=== PATIENT | female | born 1975 | race Caucasian/White ===

== ENCOUNTER 2016-12-10 13:57 | Emergency (ER) | payer OTHER | END 2016-12-10 18:00 | disposition home or self-care (01) | DX: F33.2 Major depressive disorder, recurrent severe without psychotic features (principal); R45.851 Suicidal ideations; I10 Essential (primary) hypertension; K21.9 Gastro-esophageal reflux disease without esophagitis; M79.7 Fibromyalgia; M06.9 Rheumatoid arthritis, unspecified ==

== ENCOUNTER 2017-02-24 10:45 | Outpatient (CLI) | payer OTHER ==
[2017-02-24 19:50] LABS: BASOPHILS % (AUTO) 0.7 %; EOSINOPHILS # (AUTO) 0.1 10^3/uL (0.0-0.7); EOSINOPHILS % (AUTO) 1.7 %; HCT - HEMATOCRIT 39.5 % (37.0-47.0); HGB - HEMOGLOBIN 12.8 g/dL (12.0-16.0); LYMPHOCYTES # (AUTO) 1.5 10^3/uL (1.5-3.5); LYMPHOCYTES % (AUTO) 21.6 %; MEAN CORPUSCULAR HEMOGLOBIN 29.4 pg (27.0-31.0); MEAN CORPUSCULAR HGB CONC 32.4 g/dL (32.0-36.0); MEAN CORPUSCULAR VOLUME 90.7 fL (81.0-99.0); MEAN PLATELET VOLUME 8.9 fL (7.9-10.8); MONOCYTES # (AUTO) 0.4 10^3/uL (0.0-1.0); MONOCYTES % (AUTO) 6.2 %; NEUTROPHILS # (AUTO) 4.8 10^3/uL (1.5-6.6); NEUTROPHILS % (AUTO) 69.8 %; NUCLEATED RED BLOOD CELLS AUTO 0.1 /100WBC; RED BLOOD COUNT 4.35 10^6/uL (4.20-5.40); RED CELL DISTRIBUTION WIDTH 13.2 % (12.0-15.0); UNCORRECTED WHITE BLOOD COUNT 6.9 x10^3/uL; WHITE BLOOD COUNT 6.9 x10^3/uL (4.8-10.8)
[2017-02-24 20:13] LABS: IRON 75 ug/dL (28-170); TOTAL IRON BINDING CAPACITY 325 ug/dL (250-450); TRANSFERRIN 232 mg/dL (192-382)
[2017-02-26 12:03] LABS: TEST RESULT REPORT (())
== END 2017-02-24 23:59 | disposition home or self-care (01) ==
LOC: LAB.WCP 10:45
PROVIDERS: ATTEND Physician Assistant Medical
DX: D50.9 Iron deficiency anemia, unspecified (principal); R21 Rash and other nonspecific skin eruption
CPT/HCPCS: 36415; 81599; 82728; 83540; 84466; 85025; 87255

== ENCOUNTER 2017-03-20 11:36 | Outpatient (CLI) | payer OTHER ==
[2017-03-20 18:50] LABS: BASOPHILS # (AUTO) 0.1 10^3/uL (0.0-0.1); BASOPHILS % (AUTO) 0.7 %; EOSINOPHILS % (AUTO) 0.5 %; HCT - HEMATOCRIT 41.5 % (37.0-47.0); HGB - HEMOGLOBIN 13.5 g/dL (12.0-16.0); LYMPHOCYTES # (AUTO) 1.3 10^3/uL (1.5-3.5); LYMPHOCYTES % (AUTO) 14.1 %; MEAN CORPUSCULAR HEMOGLOBIN 29.6 pg (27.0-31.0); MEAN CORPUSCULAR HGB CONC 32.5 g/dL (32.0-36.0); MEAN CORPUSCULAR VOLUME 90.9 fL (81.0-99.0); MEAN PLATELET VOLUME 8.5 fL (7.9-10.8); MONOCYTES # (AUTO) 0.4 10^3/uL (0.0-1.0); MONOCYTES % (AUTO) 4.1 %; NEUTROPHILS # (AUTO) 7.5 10^3/uL (1.5-6.6); NEUTROPHILS % (AUTO) 80.6 %; RED BLOOD COUNT 4.57 10^6/uL (4.20-5.40); RED CELL DISTRIBUTION WIDTH 13.4 % (12.0-15.0); UNCORRECTED WHITE BLOOD COUNT 9.3 x10^3/uL; WHITE BLOOD COUNT 9.3 x10^3/uL (4.8-10.8)
[2017-03-20 18:58] LABS: ALBUMIN/GLOBULIN RATIO 1.9 (1.0-2.2); BILIRUBIN,TOTAL 0.5 mg/dL (0.2-1.0); CALCIUM 9.3 mg/dL (8.5-10.3); CREATININE 0.9 mg/dL (0.4-1.0); POTASSIUM 4.4 mmol/L (3.5-5.0)
== END 2017-03-20 11:37 | disposition home or self-care (01) ==
LOC: LAB.WCP 11:36
PROVIDERS: ATTEND Internal Medicine Rheumatology
DX: M05.79 Rheumatoid arthritis with rheumatoid factor of multiple sites without organ or systems involvement (principal)
CPT/HCPCS: 36415; 80053; 85025

== ENCOUNTER 2017-04-08 12:58 | Outpatient (CLI) | payer OTHER ==
[2017-04-08 15:16] LABS: THYROID STIMULATING HORMONE 0.69 uIU/mL (0.34-5.60)
[2017-04-08 15:24] LABS: FOLLICLE STIMULATING HORMONE 6.34 mIU/mL
[2017-04-08 15:25] LABS: LUTEINIZING HORMONE 5.34 mIU/mL
[2017-04-10 20:47] LABS: TEST RESULT REPORT (())
== END 2017-04-08 12:59 | disposition home or self-care (01) ==
LOC: LAB 12:58
PROVIDERS: ATTEND Physician Assistant Medical
DX: N95.1 Menopausal and female climacteric states (principal); M05.79 Rheumatoid arthritis with rheumatoid factor of multiple sites without organ or systems involvement; Z79.899 Other long term (current) drug therapy
CPT/HCPCS: 81599; 83001; 83002; 84443; 86480

== ENCOUNTER 2017-06-02 11:03 | Outpatient (CLI) | payer OTHER ==
--- NOTE | 2017-06-02 11:49 | XRAY Report ---
EXAM: RIGHT SHOULDER RADIOGRAPHY EXAM DATE: 06/02/2017 11:17 AM. CLINICAL HISTORY: SHOULDER PAIN, RIGHT. COMPARISON: None. TECHNIQUE: 2 views. FINDINGS: Bones: No fracture or bone lesion. Joints: The glenohumeral and acromioclavicular joints are within normal limits. Soft tissues: The visualized hemithorax is unremarkable. No soft tissue swelling or periarticular reese cification. IMPRESSION: Negative right shoulder radiography. [facility] Referring Provider Line: [phone] SITE ID: [id number]
== END 2017-06-02 11:04 | disposition home or self-care (01) ==
LOC: DI 11:03
PROVIDERS: ATTEND Physician Assistant Medical
DX: M25.511 Pain in right shoulder (principal)

== ENCOUNTER 2017-06-19 09:45 | Outpatient (CLI) | payer OTHER ==
[2017-06-19 14:47] LABS: FOLLICLE STIMULATING HORMONE 5.53 mIU/mL
[2017-06-19 14:48] LABS: LUTEINIZING HORMONE 1.88 mIU/mL
== END 2017-06-19 09:46 | disposition home or self-care (01) ==
LOC: LAB.WCP 09:45
PROVIDERS: ATTEND Physician Assistant Medical
DX: N95.1 Menopausal and female climacteric states (principal)
CPT/HCPCS: 36415; 82670; 83001; 83002

== ENCOUNTER 2017-09-08 08:00 | Outpatient (CLI) | payer OTHER | END 2017-09-08 08:01 | disposition home or self-care (01) | LOC: LAB.R 08:00 | PROVIDERS: ATTEND Physician Assistant Medical | DX: N39.0 Urinary tract infection, site not specified (principal) | CPT/HCPCS: 87086 ==

== ENCOUNTER 2017-09-17 15:09 | Outpatient (CLI) | payer OTHER ==
[2017-09-17 19:17] LABS: BASOPHILS % (AUTO) 0.2 %; EOSINOPHILS % (AUTO) 0.1 %; HCT - HEMATOCRIT 38.3 % (37.0-47.0); HGB - HEMOGLOBIN 12.5 g/dL (12.0-16.0); LYMPHOCYTES # (AUTO) 0.8 10^3/uL (1.5-3.5); LYMPHOCYTES % (AUTO) 7.1 %; MEAN CORPUSCULAR HEMOGLOBIN 29.6 pg (27.0-31.0); MEAN CORPUSCULAR HGB CONC 32.5 g/dL (32.0-36.0); MEAN CORPUSCULAR VOLUME 90.9 fL (81.0-99.0); MEAN PLATELET VOLUME 8.5 fL (7.9-10.8); MONOCYTES # (AUTO) 0.3 10^3/uL (0.0-1.0); MONOCYTES % (AUTO) 2.2 %; NEUTROPHILS # (AUTO) 10.7 10^3/uL (1.5-6.6); NEUTROPHILS % (AUTO) 90.4 %; RED BLOOD COUNT 4.21 10^6/uL (4.20-5.40); RED CELL DISTRIBUTION WIDTH 13.6 % (12.0-15.0); UNCORRECTED WHITE BLOOD COUNT 11.9 x10^3/uL; WHITE BLOOD COUNT 11.9 x10^3/uL (4.8-10.8)
[2017-09-17 19:29] LABS: ALBUMIN/GLOBULIN RATIO 1.8 (1.0-2.2); BILIRUBIN,TOTAL 0.4 mg/dL (0.2-1.0); CALCIUM 9.3 mg/dL (8.5-10.3); CREATININE 0.9 mg/dL (0.4-1.0); POTASSIUM 4.3 mmol/L (3.5-5.0)
== END 2017-09-17 15:10 | disposition home or self-care (01) ==
LOC: LAB.WCP 15:09
PROVIDERS: ATTEND Internal Medicine Rheumatology
DX: M05.79 Rheumatoid arthritis with rheumatoid factor of multiple sites without organ or systems involvement (principal); Z79.899 Other long term (current) drug therapy
CPT/HCPCS: 36415; 80053; 85025

== ENCOUNTER 2017-11-26 20:04 | Outpatient (CLI) | payer OTHER ==
--- NOTE | 2017-11-27 11:11 | Ultrasound Report ---
ULTRASOUND POSTERIOR RIGHT NECK: 11/26/2017 CLINICAL INDICATION: Palpable abnormality. TECHNIQUE: Real-time scanning was performed with insurance sales representative static images obtained. FINDINGS: Ultrasound of the palpable abnormality identified by the patient was performed. At this site, there is a 2.0 x 1.8 x 1.4 cm intramuscular lesion, which demonstrates no internal vascularity. It does demonstrate some internal septations. It is not a simple cyst or a simple lipoma. As such, MRI with and without intravenous contrast would be recommended for further characterization. IMPRESSION: SUSPICIOUS APPEARING 2 CM MASS CORRELATING WITH THE PALPABLE ABNORMALITY. MRI WITH AND WITHOUT CONTRAST IS RECOMMENDED FOR FURTHER EVALUATION. TD: 11/27/2017 11:10
== END 2017-11-26 20:05 | disposition home or self-care (01) ==
LOC: DI 20:04
PROVIDERS: ATTEND Physician Assistant Medical
DX: R22.1 Localized swelling, mass and lump, neck (principal)
CPT/HCPCS: 76536

== ENCOUNTER 2017-12-10 11:58 | Outpatient (CLI) | payer OTHER ==
[2017-12-10 18:44] LABS: BASOPHILS % (AUTO) 0.6 %; EOSINOPHILS # (AUTO) 0.2 10^3/uL (0.0-0.7); HGB - HEMOGLOBIN 12.6 g/dL (12.0-16.0); LYMPHOCYTES # (AUTO) 1.7 10^3/uL (1.5-3.5); LYMPHOCYTES % (AUTO) 20.8 %; MEAN CORPUSCULAR HEMOGLOBIN 28.3 pg (27.0-31.0); MEAN CORPUSCULAR HGB CONC 32.4 g/dL (32.0-36.0); MEAN CORPUSCULAR VOLUME 87.3 fL (81.0-99.0); MEAN PLATELET VOLUME 8.6 fL (7.9-10.8); MONOCYTES # (AUTO) 0.7 10^3/uL (0.0-1.0); NEUTROPHILS # (AUTO) 5.6 10^3/uL (1.5-6.6); NEUTROPHILS % (AUTO) 68.6 %; PLT - PLATELET COUNT 342 10^3/uL (130-450); RED BLOOD COUNT 4.45 10^6/uL (4.20-5.40); RED CELL DISTRIBUTION WIDTH 13.3 % (12.0-15.0); WHITE BLOOD COUNT 8.2 x10^3/uL (4.8-10.8)
[2017-12-10 18:58] LABS: ALBUMIN 4.2 g/dL (3.2-5.5); ALBUMIN/GLOBULIN RATIO 1.8 (1.0-2.2); ALKALINE PHOSPHATASE 55 IU/L (42-121); ALT ALANINE AMINOTRANSFERASE 21 IU/L (10-60); AST ASPARTATE AMINOTRANSFERASE 17 IU/L (10-42); BILIRUBIN,TOTAL 0.6 mg/dL (0.2-1.0); BUN - BLOOD UREA NITROGEN 13 mg/dL (6-20); CARBON DIOXIDE - CO2 28 mmol/L (21-32); CHLORIDE 101 mmol/L (101-111); CREATININE 0.8 mg/dL (0.4-1.0); GFR - MDRD 79 (>89); GLUCOSE 83 mg/dL (70-100); SODIUM 136 mmol/L (135-145); TOTAL PROTEIN 6.5 g/dL (6.7-8.2)
[2017-12-10 19:36] LABS: CRP - C-REACTIVE PROTEIN < 1.0 mg/dL (0-1.0)
== END 2017-12-10 11:59 | disposition home or self-care (01) ==
LOC: LAB.WCP 11:58
PROVIDERS: ATTEND Internal Medicine Rheumatology
DX: M05.79 Rheumatoid arthritis with rheumatoid factor of multiple sites without organ or systems involvement (principal); Z79.899 Other long term (current) drug therapy
CPT/HCPCS: 36415; 80053; 85025; 85651; 86140

== ENCOUNTER 2017-12-11 07:48 | Outpatient (CLI) | payer OTHER ==
[2017-12-11] MEDS ORDERED: GADOBUTROL 10 MMOL/10 ML VIAL ONE (07:54)
[2017-12-11] MEDS ORDERED: GADOBUTROL 10 MMOL/10 ML VIAL IVP ONE (08:48)
--- NOTE | 2017-12-11 12:33 | MRI Report ---
EXAM: MRI SOFT TISSUE NECK WITHOUT AND WITH CONTRAST EXAM DATE: 12/11/2017 09:22 AM. CLINICAL HISTORY: Soft tissue mass. Lump on the right side posterior lower neck. Patient noticed this one month ago. COMPARISON: Ultrasound of the neck 11/26/2017. TECHNIQUE: Multiplanar, multisequence T1-weighted and fluid-sensitive MR sequences of the neck soft t issues were performed. Other: None. IV Contrast: 10 mL Gadavist. FINDINGS: Skull Base: Visualized intracranial contents and orbits are unremarkable. The skull base is intact. Pharynx and Oral Cavity: The pharyngeal mucosa is unremarkable. The infratemporal fossa, parapharynge al spaces, and retropharyngeal space are unremarkable. The airway is patent. The base of the tongue is symmetric. No mass lesion. The floor of the mouth is symmetric and unremark able. Larynx: The larynx and supraglottic airway are patent without mass lesion. The vocal cords are symme tric. The visualized trachea is unremarkable. Parotid and Submandibular Glands: Symmetric and unremarkable. Lymph Nodes and Soft Tissues: No enlarged cervical, supraclavicular fossa, or visualized superior me diastinal lymph nodes. Lobular rim-enhancing soft tissue mass is seen in the right posterolateral lower neck deep subcutaneo us fat plane. This is superficial to the trapezius muscle. This measures 19 x 13 x 17 mm. Similar jade earing but smaller mirror image nodule is seen in the left posterolateral neck as well measuring appr oximately 6 mm in size. Vasculature: Intact. The right internal jugular vein is dominant. Bones: Unremarkable. Other: The upper chest is unremarkable. IMPRESSION: 1. Enhancing 19 x 13 x 17 mm mass in the deep subcutaneous fat plane of the right posterolateral lowe r neck. This could represent a mesenchymal tumor or enlarged lymph node. Biopsy or excision may be of value. 2. Similar appearing mirror image 6 mm nodule in the left posterolateral neck deep subcutaneous fat p radhika as well. This may represent a lymph node versus trichilemmal cyst. [facility] Referring Provider Line: [phone] SITE ID: [id number]
== END 2017-12-11 07:49 | disposition home or self-care (01) ==
LOC: DI 07:48
PROVIDERS: ATTEND Family Medicine
DX: R22.1 Localized swelling, mass and lump, neck (principal)
CPT/HCPCS: 70543; A9585

== ENCOUNTER 2018-01-05 09:46 | Day surgery (SDC) | payer OTHER ==
[~2018-01-05 09:46] MED LIST: ceFAZolin 2 GM/50 ML 2 GM/50 ML BAG IV ONE
[2018-01-05 10:07] LABS: HCG UR QUAL NEGATIVE
[2018-01-05] MEDS ORDERED: LACTATED RINGERS 1,000 ML IV ONE ×2 (10:18→13:10)
[2018-01-05] MEDS ORDERED: DEXAMETHASONE 4 MG/ML VIAL IVP ONE (12:50)
[2018-01-05] MEDS ORDERED: NEOSTIGMINE 1 MG/1 ML 10 ML MDV IVP ONE (12:50)
[2018-01-05] MEDS ORDERED: ePHEDrine 50 MG/ML AMP IVP ONE (12:50)
[2018-01-05] MEDS ORDERED: MIDAZOLAM 2 MG/2 ML VIAL IVP ONE (12:50)
[2018-01-05] MEDS ORDERED: ONDANSETRON 4 MG/2 ML VIAL IVP ONE (12:50)
[2018-01-05] MEDS ORDERED: ROCURONIUM 50 MG/5 ML VIAL IVP ONE (12:50)
[2018-01-05] MEDS ORDERED: fentaNYL 250 MCG/5 ML VIAL IVP ONE (12:50)
[2018-01-05] MEDS ORDERED: GLYCOPYRROLATE 1 MG/5 ML VIAL IVP ONE (12:50)
[2018-01-05] MEDS ORDERED: SUCCINYLCHOLINE 200 MG/10 ML VIAL IVP ONE (12:50)
[2018-01-05] MEDS ORDERED: PROPOFOL 200 MG/20 ML VIAL IVP ONE (12:50)
[2018-01-05] MEDS ORDERED: LIDOCAINE-MPF 2% 5 ML VIAL IM ONE (12:50)
[2018-01-05] MEDS ORDERED: BUPIVACAINE 0.5% PF 10 ML VIAL SUBQ ONE (12:53)
[2018-01-05] MEDS: fentaNYL 100 MCG/2 ML VIAL ONE ×2 (14:12→14:17)
--- NOTE | 2018-01-05 14:12 | OPERATIVE REPORT ---
Operative Report - General Procedure Date: 01/05/18 Planned Procedure: Excision of RIGHT upper back - lower neck mass Pre-Op Diagnosis: RIGHT upper back - lower neck mass (intramuscular - trapezius) Procedure Performed: Excision of RIGHT upper back - lower neck mass (attached to trapezius) Post Op Diagnosis: RIGHT upper back - lower neck mass - favor necrotic lymph node - Procedure Note Primary Surgeon: Ricki Doss MD Anesthesia Provider: Tenzin Silva CRNA and Ricki Munson MD Anesthesia Technique: Local (10 mL 1/2% marcaine) IV Fluids (mL): 1,200 Estimated Blood Loss (mL): 2 Complications: None. - Other Other Information/Narrative: OPERATIVE DESCRIPTION/REPORT: After verbal and written informed consent was obtained detailing the risks of infection, bleeding requiring transfusion with its risks, nerve injury, and , and after I met with the patient confirming the surgery and the site of the surgery and after initialing the site of the surgery with a surgical marker , the patient was brought to the operative suite and placed supine on the operating table. Great care was taken to avoid pressure points to prevent pressure necrosis or nerve injury. Monitoring devices were applied along with TEDs and pneumatic compressive stockings (to prevent DVT). The patient received preoperative antibiotics for surgical prophylaxis. Tenzin Silva CRNA and Ricki Mnuson MD sedated and anesthetized the patient for the entire procedure. The patient was prepped and draped in the usual sterile manner. With the patient draped my initials were clearly visible. A "time in" then confirmed that the patient was identified with 3 identifiers (name, date and medical record number), the history and physical was in the chart, the signed consent confirming the procedure was in the chart, the patient was in the correct position, the aforementioned prophylactic measures were in place or given, we had the correct personnel and equipment to complete the procedure and that anesthesia, surgery and nursing were given an opportunity to express any concerns. With the agreement of everyone in the room, we proceeded with the operation. After the patient was appropriately anesthetized and sedated, an incision was made overlying the lesion and dissection was carried down to the subcutaneous tissues using a combination of Metzenbaum scissors, and scalpel. Hemostasis was obtained via application of Bovie. The lesion was very hard and dark consistent with a necrotic enlarged lymph node. It was also adherent to the trapezius muscle. With a combination of Bovie electrocautery, Metzenbaum scissors, and some blunt dissection the lesion was totally excised. Deep to this lesion was a smaller lesion that had a similar appearance and this was also excised and sent for pathologic evaluation. There was some thicked tissue deeper but this was adherent to the lesion that was seen and felt preoperatively but this was likely tissue adherent to the tissue of interest ( that had already been excised). Meticulous hemostasis was noted. The subcutaneous tissues were approximated using interrupted 3-0 Vicryl sutures. The skin incision was closed using a running subcuticular 4-0 Monocryl suture. A dressing was applied. At this point a time out was performed that confirmed that all the counts were correct, the procedure that was performed, the blood loss, the IV fluids administered, and the patients condition. Having tolerated the procedure well, the patient was subsequently taken to recovery room in good and stable condition. The operative findings were discussed with the patient's significant other. Dragon disclaimer: This document was created in part using voice recognition technology. Because of the inherent limitations of the system ([employer]'s Dragon Dictate user manual states that the licensee understands that speech recognition is a statistical process and that recognition errors are inherent in the process), occasional same sounding word substitutions and grammatical errors do occur and persist despite proofreading. Please read this document for context.
[2018-01-05 15:17] VITALS: BP 133/77
[2018-01-05] MEDS ORDERED: HYDROcod/ACETAM 5/325 MG TABLET ONE (15:31)
== END 2018-01-05 09:47 | disposition home or self-care (01) ==
LOC: SDS 09:46
PROVIDERS: ATTEND Surgery
PROC: 0JB70ZZ Excision of Back Subcutaneous Tissue and Fascia, Open Approach (ICD-10-PCS; principal; 2018-01-05 10:45)
DX: C79.89 Secondary malignant neoplasm of other specified sites (principal); M06.9 Rheumatoid arthritis, unspecified; Z85.820 Personal history of malignant melanoma of skin; J45.909 Unspecified asthma, uncomplicated; Z79.82 Long term (current) use of aspirin
CPT/HCPCS: 21936; 81025; A9270; J0330; J0690; J3010; J7120

== ENCOUNTER 2018-01-29 12:16 | Outpatient (CLI) | payer OTHER ==
[2018-01-29] MEDS ORDERED: BUFFERED LIDOCAINE 10 ML SYRINGE IU ONE (13:59)
--- NOTE | 2018-01-29 17:33 | Ultrasound Report ---
ULTRASOUND-GUIDED FINE NEEDLE ASPIRATION LEFT SHOULDER LYMPH NODE: 01/29/2018 CLINICAL INDICATION: A 42-year-old with biopsy of right shoulder demonstrating malignant melanoma, possible contralateral disease. FINDINGS: Following obtaining informed consent, the patient's left shoulder was prepped and draped in the usual sterile fashion. The skin and soft tissues were anesthetized with lidocaine. Under ultrasound guidance, four 22-gauge fine needle aspirations were performed. Needle washings were submitted to Pathology in [facility]. The patient tolerated the procedure well. No immediate complications. IMPRESSION: FINE NEEDLE ASPIRATION OF LEFT POSTERIOR SHOULDER NODULE. AWAIT PATHOLOGY REPORT. TD: 01/29/2018 17:33
== END 2018-01-29 12:17 | disposition home or self-care (01) ==
LOC: DI 12:16
PROVIDERS: ATTEND Nurse Practitioner Adult Health
DX: C79.2 Secondary malignant neoplasm of skin (principal)
CPT/HCPCS: 10022; 76942

== ENCOUNTER 2018-05-04 06:20 | Day surgery (SDC) | payer OTHER ==
[2018-05-04] MEDS ORDERED: LACTATED RINGERS 1,000 ML IV ONE ×3 (06:25→10:54)
[2018-05-04 06:54] LABS: HCG UR QUAL NEGATIVE
[2018-05-04] MEDS ORDERED: ceFAZolin 2 GM/50 ML 2 GM/50 ML BAG IV ONE (07:09)
--- NOTE | 2018-05-04 07:15 | ANESTHESIA ---
Pre-Anesthesia VS, & Labs - Diagnosis Metastatic Melanoma - Procedure Portacath Placement Vital Signs: Temp Pulse Resp BP Pulse Ox 36.0 C L 18 117/70 100 05/04/18 06:36 05/04/18 06:36 05/04/18 06:36 05/04/18 06:36 Height 5 ft 5 in Weight (kg) 102.1 kg Body Mass Index 40.1 - NPO >8 hours - Is Patient ?: No - Lab Results Lab results reviewed: Yes Home Medications and Allergies Home Medications: Ambulatory Orders Medication Instructions Recorded Confirmed Omeprazole 40 mg PO BID 03/23/13 05/03/18 Oxycodone HCl/Acetaminophen 1 - 2 each PO PRN PRN 03/23/13 05/03/18 [Percocet 7.5-500 mg Tablet] Venlafaxine ER [Effexor ER] 225 mg PO DAILY 03/23/13 05/04/18 Amiloride HCl 5 mg PO DAILY 02/20/16 05/04/18 Cholecalciferol (Vitamin D3) 1,000 unit PO DAILY 02/20/16 05/04/18 [Vitamin D3] Hydroxychloroquine [Plaquenil] 400 mg PO DAILY 02/20/16 05/04/18 Multivitamin [Multivitamins] 1 each PO DAILY 02/20/16 05/04/18 lamoTRIgine [Lamictal] 200 mg PO DAILY 02/20/16 05/03/18 raNITIdine [Zantac] 150 mg PO BID 02/20/16 05/03/18 Isomethepten/Caf/Acetaminophen 1 tab PO QID 12/10/16 05/03/18 [Wsorqctfca-Gxoc-Cosekrvievble] buPROPion [Wellbutrin Xl] 300 mg PO DAILY 12/10/16 05/04/18 Epinephrine [Epipen 2-Ant] 0.3 mg IJ PRN PRN 12/30/17 05/04/18 Folic Acid 1 mg PO DAILY 12/30/17 05/04/18 Meloxicam 7.5 mg PO PRN PRN 12/30/17 05/03/18 Ondansetron HCl [Zofran] 4 mg PO PRN PRN 12/30/17 05/03/18 Prazosin HCl 1 mg PO DAILY 12/30/17 05/03/18 clonazePAM [KlonoPIN] 0.5 tab PO BID 01/05/18 05/03/18 ALPRAZolam [Alprazolam] 0.5 mg PO PRN PRN 01/25/18 05/03/18 Cholecalciferol [Vitamin D3] 1 cap PO DAILY 01/25/18 05/04/18 Cyclobenzaprine [Flexeril] 10 mg PO PRN PRN 01/25/18 05/03/18 Lurasidone HCl [Latuda] 1 tab PO DAILY 01/25/18 05/03/18 Magnesium Oxide [Magnesium] 1 cap PO DAILY 01/25/18 05/04/18 Malic Acid 1 cap PO DAILY 01/25/18 05/04/18 Melatonin 10 mg PO DAILY 01/25/18 05/03/18 Tramadol HCl [Ultram] 50 mg PO PRN PRN 01/25/18 05/03/18 diazePAM [Diazepam] 10 mg PO ONCE 01/27/18 05/04/18 Dabrafenib Mesylate [Tafinlar] 150 mg PO BID 02/15/18 05/04/18 Prochlorperazine [Compazine] 1 - 2 tab PO Q6H PRN #30 tablet 03/03/18 05/04/18 Fluticasone [Flonase] 1 sprays NEO DAILY 03/09/18 05/04/18 Prednisone 5 mg PO PRN PRN 05/03/18 05/03/18 Allergies/Adverse Reactions: Allergies Allergy/AdvReac Type Severity Reaction Status Date / Time azithromycin [From Zithromax] Allergy Intermediate Rash Verified 05/04/18 07:00 Penicillins Allergy Intermediate Anxiety Verified 05/04/18 07:00 promethazine HCl * Allergy Intermediate Hallucinati Verified 05/04/18 07:00 [From Phenergan] ons aripiprazole [From Abilify] Allergy Unknown Verified 05/04/18 07:00 PEANUTS Allergy Intermediate SWELLING Uncoded 05/03/18 15:29 Anes History & Medical History - Anesthetic History Anesthesia Complications: reports: No previous complications - Airway/Dental Dental: WNL Mallampati classification: I - Medical History Cardiovascular: reports: Hypertension Pulmonary: reports: Asthma, Pneumonia Gastrointestinal: reports: GERD Urinary: reports: None Musculoskeletal: reports: Fibromyalgia, Rheumatoid arthritis Endocrine/Autoimmune: reports: None Skin: reports: None Smoking Status: Never smoker - Surgical History General: Cholecystectomy Gynecologic: Breast reduction, Other Orthopedic: Rotator cuff repair Dermatologic: Skin cancer surgery Exam General: Alert, Oriented x3 Mental/Cognitive Status: Alert/Oriented X3 Plan Anesthesia Type: General, MAC Consent for Operative Procedure(s) Verified and Reviewed: Yes Code Status: Attempt Resuscitation ASA classification: 3-Severe systemic disease Is this case an emergency?: No
[2018-05-04] MEDS ORDERED: BUPIVACAINE 0.5% PF 30 ML VIAL SUBQ ONE ×2 (07:56)
[2018-05-04] MEDS ORDERED: LIDOCAINE-MPF 2% 5 ML VIAL IM ONE (08:00)
[2018-05-04] MEDS ORDERED: ONDANSETRON 4 MG/2 ML VIAL IVP ONE (08:00)
[2018-05-04] MEDS ORDERED: PROPOFOL 200 MG/20 ML VIAL IVP ONE (08:00)
[2018-05-04] MEDS ORDERED: KETOROLAC 30 MG/ML VIAL IVP ONE (08:00)
[2018-05-04] MEDS ORDERED: MIDAZOLAM 2 MG/2 ML VIAL IVP ONE (08:00)
[2018-05-04] MEDS ORDERED: fentaNYL 100 MCG/2 ML VIAL IVP ONE (08:00)
[2018-05-04] MEDS ORDERED: DEXAMETHASONE 4 MG/ML VIAL IVP ONE (08:00)
--- NOTE | 2018-05-04 11:11 | OPERATIVE REPORT ---
Operative Report - General Planned Procedure: Portacath placement Pre-Op Diagnosis: Metastatic melanoma Procedure Performed: Portacath placement LEFT subclavian attempted LEFT internal jugular used - modifier 22 for increased procedural time and technical difficulty Post Op Diagnosis: Same - Procedure Note Primary Surgeon: Ricki Doss MD Secondary Surgeon: Ricky Marie MD Anesthesia Provider: Tenzin Silva CRNA Anesthesia Technique: General LMA, Local (14 mL 1/2% marcaine), MAC IV Fluids (mL): 2,000 Estimated Blood Loss (mL): 100 Complications: None. - Other Other Information/Narrative: OPERATIVE DESCRIPTION/REPORT: After verbal and written informed consent was obtained detailing the risks of infection, bleeding requiring transfusion with its risks, nerve injury, and , and after I met with the patient confirming the surgery and the site of the surgery, the patient was brought to the operative suite and placed supine on the operating table. Great care was taken to avoid pressure points to prevent pressure necrosis or nerve injury. Monitoring devices were applied along with TEDs and pneumatic compressive stockings (to prevent DVT). The patient received preoperative antibiotics for surgical prophylaxis. Tenzin Silva CRNA sedated and anesthetized the patient for the entire procedure. The patient was prepped and draped in the usual sterile manner. A "time in" then confirmed that the patient was identified with 3 identifiers (name, date and medical record number), the history and physical was in the chart, the signed consent confirming the procedure was in the chart, the patient was in the correct position, the aforementioned prophylactic measures were in place or given, we had the correct personnel and equipment to complete the procedure and that anesthesia, surgery and nursing were given an opportunity to express any concerns. With the agreement of everyone in the room, we proceeded with the operation. After the subclavian region was anesthetized using % marcaine and the patient placed in Trendelenberg position, an [employer] Smartport kit was opened. The finder needle was inserted numerous times into the LEFT subclavian region underneath the patient's large clavicle without success in finding the subclavian vein. The one time that the vein was accessed it was very deep and the wire could not be advanced past the sternal notch (it kept going "up" rather than "down"). The patient's anatomy was not favorable to finding the vein so I asked for an ultrasound machine to brought in and called Dr. Ricky Marie for assistance with operating the ultrasound and for his opinion regarding continued attempts at subclavian cannulation. With the ultrasound it was clear that both the LEFT IJ and the LEFT subclavian veins were very deep ( over 4 cm from the skin). Due to "interference" from the clavicle, it was felt that the LEFT IJ would be a better though still difficult candidate. Both veins were very small in size. Using ultrasound the needle was placed into the left internal jugular vein and wire placed. Fluoroscopy was called to confirm placement of the wire into the right atrium. There was a little bump where the brachiocephalic came in but a wire was definitively in the right atrium. This wire was left in place while the pouch for the Port-A-Cath was created. Below and medial to the patient's tattoo, the area was anesthetized using % marcaine and a transverse incision was made just large enough to accommodate the port. This incision was taken down to the fascia using sharp dissection and the area for the port was created using blunt downward dissection. Meticulous hemostasis was obtained using Bovie electrocautery. A Leta clamp was used on the anterior chest wall to measure the catheter to make sure that there would be enough length that it would be placed in the right atrium. The catheter was then cut at 27 cm. An 11 blade knife was inserted along the wire to widen the insertion site and this was further dilated using a Leta. The passer was then used to pass the catheter from the pouch site to be needle/wire insertion site. The catheter secured to the port with the collar was sewn to the fascia using a 3-0 Prolene. The port and the catheter were flushed with heparinized saline using a Gross needle. The dilator and then the dilator and sheath were then carefully inserted over the wire and the dilator and wire withdrawn. The catheter was then inserted into the sheath and the sheath was broken away from the catheter leaving the catheter in place in the vein. An X-ray confirmed placement of the catheter tip in the supracardiac vena cava without pneumothorax but it was curved upward . This was unacceptable. Under fluoroscopic guidance and after I removed the port from the pouch and disconnected the port from the catheter, I tried guiding the catheter down toward the heart both with and without a guide wire in the catheter. Despite numerous attempts it became clear that this was a fruitless endeavor. It was clear that I would have to replace the catheter using a longer wire and initial catheter. After obtaining a glidewire and ensuring that it would pass through the catheter , the wire was placed into the malpositioned catheter gaining access to the vena cava and the old catheter removed. Under fluoroscopic guidance the wire was placed into the right ventricle. Numerous attempts could not place it in the infracardiac vena cava. The wire was then passed from the port site to the needle insertion site and a dilator and sheath placed over the wire and into the internal jugular vein. Again the dilator was removed and the catheter was passed from the port site to the needle insertion site and placed over the wire and into the right ventricle under fluoroscopic guidance. Now the wire was removed and the peel away sheath removed leaving the catheter in the right ventricle. Now I was able to gently pull the catheter back until it sat in the right atrium. Now with fluoroscopic confirmation of placement the catheter was cut, the collar applied and the port connected to the catheter and secured with the collar. Using a Hueber needle the port was accessed and good blood return as well as easy flush was noted. The subcutaneous tissue was approximated using 3-0 Vicryl and the skin incisions were approximated with 4-0 Monocryl in a subcuticular fashion. The skin prep was washed off and prepped with benzoin. Steristrips were applied. At this point a time out was performed that confirmed that all the counts were correct, the procedure that was performed, the blood loss, the IV fluids administered, and the patients condition. A dressing was placed on the wound. Having tolerated the procedure well, the patient was taken to PACU in good and stable condition where a chest x-ray confirmed excellent placement without pneumothorax. The patient was instructed that the Portacath could be used immediately. This normally 20 minute procedure took close to 3 hours to complete and used fluoroscopy,ultrasound as well as 2 kits and a glidewire. I called in the expertise of another surgeon. Hence a modifier 22 must be appended.
[2018-05-04] MEDS ORDERED: ONDANSETRON 4 MG/2 ML VIAL ONE (11:35)
[2018-05-04] MEDS: oxyCOD/ACETAMIN 5 MG/325 MG TABLET PO ONE ×2 (11:40→12:08)
--- NOTE | 2018-05-04 12:18 | XRAY Report ---
Procedure Date: 05/04/2018 Accession Number: [id number] / [id number] Procedure: XR - Chest 1 View X-Ray CPT Code: 62475 FULL RESULT: EXAM: Chest 1 View X-Ray DATE: 05/04/2018 11:57 AM CLINICAL HISTORY: S/P port a cath COMPARISON: Intraoperative fluoroscopy same day. TECHNIQUE: Single view of the chest. FINDINGS: Lungs/Pleura: No focal opacities evident. No pneumothorax or pleural effusion. Mediastinum: Within exam limitations, cardiomediastinal contour is normal. Other: A left internal jugular vein approach Port-A-Cath with the tip terminating in the lower SVC just above the cavoatrial junction. Correlate acute curvature at the venotomy site for free port aspiration and flushing. IMPRESSION: Central venous port placement with tip location as described. [facility]
[2018-05-04] MEDS ORDERED: oxyCOD/ACETAMIN 5 MG/325 MG TABLET PO ONE (12:45)
[2018-05-04 13:29] VITALS: BP 133/80
--- NOTE | 2018-05-04 16:00 | XRAY Report ---
Procedure Date: 05/04/2018 Accession Number: [id number] / [id number] Procedure: FL - OR Port-A-Cath CPT Code: FULL RESULT: EXAM: OR Port-A-Cath DATE: 05/04/2018 12:10 PM CLINICAL HISTORY: LINE PLACEMENT COMPARISON: None. Findings: Fluoroscopic images captured during operative placement of a left central venous port-type catheter are submitted for review. The radiologist was not continuously present during the procedure. Normal anatomy is identified on the images. For final positioning of the central venous catheter, refer to the radiograph of the thorax obtained following the procedure. Fluoroscopy time: 3 minutes 45 seconds. 7 images captured. IMPRESSION: Left central venous Port-A-Cath placement. [facility]
== END 2018-05-04 06:21 | disposition home or self-care (01) ==
LOC: SDS 06:20
PROVIDERS: ATTEND Surgery
PROC: 05HN33Z Insertion of Infusion Device into Left Internal Jugular Vein, Percutaneous Approach (ICD-10-PCS; 2018-05-04)
PROC: B514ZZA Fluoroscopy of Left Jugular Veins, Guidance (ICD-10-PCS; 2018-05-04)
PROC: 0JH63WZ Insertion of Totally Implantable Vascular Access Device into Chest Subcutaneous Tissue and Fascia, Percutaneous Approach (ICD-10-PCS; principal; 2018-05-04 07:59)
DX: C43.9 Malignant melanoma of skin, unspecified (principal); I10 Essential (primary) hypertension; J45.909 Unspecified asthma, uncomplicated
CPT/HCPCS: 71045; 81025

== ENCOUNTER 2018-09-27 12:09 | Outpatient (CLI) | payer OTHER ==
--- NOTE | 2018-09-27 12:35 | XRAY Report ---
Reason: METASTATIC MELANOMA Procedure Date: 09/27/2018 Accession Number: [id number] / [id number] Procedure: XR - Chest 2 View X-Ray CPT Code: 26618 FULL RESULT: EXAM: CHEST RADIOGRAPHY EXAM DATE: 09/27/2018 12:19 PM. CLINICAL HISTORY: Metastatic melanoma. COMPARISON: CHEST 1 VIEW 05/04/2018 11:33 AM. TECHNIQUE: 2 views. FINDINGS: Lungs/Pleura: No focal opacities evident. No pleural effusion. No pneumothorax. Normal volumes. Mediastinum: Heart and mediastinal contours are unremarkable. Other: Right IJ port with tip at the superior cavoatrial junction similar to prior. IMPRESSION: No evidence of pneumonia. [facility]
--- NOTE | 2018-09-27 12:39 | ONCOLOGY / HEMATOLOGY ---
DATE OF SERVICE: 09/27/2018 Physician: Mor Raza MD, PHD To Whom it May Concern: This letter is to attest MsGlenys Knight is a patient of our cancer center and currently receiving active therapy for an advanced melanoma. She has had several types of therapies which cause much distress due to side effects and cancer progression. Most recently, she is receiving dabrafenib and ipilimumab. although the melanoma is better under control, she has much difficulties with fever, fatigue, flare of joint pains and flare of migraine headache. she has lost much weight due to nausea, loss of appetite. The disease, treatments and side effects are causing much distress to her life. Any other additional stress either from social, economical or legal aspects will certainly worsen her condition and impair her recovery from treatment side effects, and her illness. Should you need further information, please do not hesitate to contact me at [phone]. Sincerely yours, Mor Raza MD. TD: 09/27/2018 10:08 MTDD
== END 2018-09-27 12:10 | disposition home or self-care (01) ==
LOC: DI 12:09
PROVIDERS: ATTEND Internal Medicine Hematology & Oncology
DX: C43.9 Malignant melanoma of skin, unspecified (principal); C79.9 Secondary malignant neoplasm of unspecified site; E86.0 Dehydration; E87.1 Hypo-osmolality and hyponatremia; R19.7 Diarrhea, unspecified
CPT/HCPCS: 71046

== ENCOUNTER 2018-11-11 05:51 | Inpatient (IN) | payer OTHER ==
--- NOTE | 2018-11-11 06:03 | ED Physician Documentation ---
PD HPI FEVER - Stated complaint Stated Complaint: FEVER - Chief complaint Chief Complaint: Fever - History obtained from History obtained from: Patient - History of Present Illness Timing - onset: How many days ago (12) Timing details: Abrupt onset, Intermittant Pain level now: 5 (generalized myalgias) Associated symptoms: Chills, Sweats. No: Nasal congestion, Sinus pain, Sore throat, Dry cough, Productive cough, Dyspnea, Abdominal pain, Urinary symptoms, Rash/skin lesion Contributing factors: Immunocompromised (chemotherapy/immunotherapy) Recently seen: Not recently seen - Additional information Additional information: c/o 12 days of fever which had been controlled with tylenol, although she says fever would consistently return if she did not take tylenol Q8 hours. She says that her hem/onc doctor told her that as long as the fever was controlled with tylenol (able to drop below 100.4 with tylenol), she did not need to be emergently evaluated. This morning at 3 AM , her fever was over 102 and then increased to over 103 after tylenol and thus she came to ED. She c/o generalized myalgias and fatigue. Her chemotherapy is a daily oral agent she takes at home, and her immunotherapy is Q3 weeks with next dose in 2 weeks. Patient last took tylenol shortly after 3 AM this morning. Review of Systems Constitutional: reports: Fever, Chills, Myalgias, Fatigue, Sweats Eyes: reports: Reviewed and negative Ears: reports: Reviewed and negative Nose: reports: Reviewed and negative Throat: denies: Sore throat Cardiac: reports: Reviewed and negative Respiratory: reports: Reviewed and negative GI: reports: Nausea. denies: Abdominal Pain, Vomiting, Diarrhea : denies: Dysuria, Frequency Skin: denies: Rash Musculoskeletal: reports: Reviewed and negative Neurologic: reports: Generalized weakness. 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, Other Derm: Skin cancer surgery - Present Medications Home Medications: Ambulatory Orders Medication Instructions Recorded Confirmed Omeprazole 40 mg PO BID 03/23/13 11/11/18 Venlafaxine ER [Effexor ER] 225 mg PO DAILY 03/23/13 11/11/18 Amiloride HCl 5 mg PO DAILY 02/20/16 11/11/18 Hydroxychloroquine [Plaquenil] 400 mg PO DAILY 02/20/16 11/11/18 Multivitamin [Multivitamins] 1 each PO DAILY 02/20/16 11/11/18 raNITIdine [Zantac] 150 mg PO BID 02/20/16 11/11/18 EPINEPHrine [Epipen 2-Ant] 0.3 mg IJ PRN PRN 12/30/17 11/11/18 Folic Acid 1 mg PO DAILY 12/30/17 11/11/18 Meloxicam 7.5 mg PO 1400 12/30/17 11/11/18 Prazosin HCl 1 mg PO QPM 12/30/17 11/11/18 clonazePAM [KlonoPIN] 0.5 tab PO BID PRN 01/05/18 11/11/18 Cyclobenzaprine [Flexeril] 10 mg PO TID PRN 01/25/18 11/11/18 Lurasidone HCl [Latuda] 60 mg PO QPM 01/25/18 11/11/18 Magnesium Oxide [Magnesium] 800 mg PO DAILY 01/25/18 11/11/18 Malic Acid 1 cap PO DAILY 01/25/18 11/11/18 Melatonin 10 mg PO DAILY 01/25/18 11/11/18 Prednisone 5 - 20 mg PO DAILY PRN 05/03/18 11/11/18 Lidocaine/Prilocain 2.5% Cream 30 gm TOP 1-2XD PRN #1 tube 05/04/18 11/11/18 [Emla 2.5% Cream] Ondansetron HCl [Zofran] 4 mg PO Q4H PRN #30 tablet 07/26/18 11/11/18 Bupropion HCl [Bupropion Xl] 300 mg PO DAILY 11/11/18 11/11/18 Dabrafenib Mesylate [Tafinlar] 150 mg PO BID 11/11/18 11/11/18 Isometheptene Mucate 65 mg PO QID 11/11/18 11/11/18 Lamotrigine [Lamotrigine ER] 200 mg PO QPM 11/11/18 11/11/18 Oxycodone HCl/Acetaminophen 1 tab PO Q6H PRN 11/11/18 11/11/18 [Oxycodone-Acetaminophen 10-325] Zolpidem Tartrate [Ambien] 10 mg PO QPM PRN 11/11/18 11/11/18 - Allergies Allergies/Adverse Reactions: Allergies Allergy/AdvReac Type Severity Reaction Status Date / Time peanut Allergy Severe Anaphylaxis Verified 11/11/18 08:44 azithromycin [From Zithromax] Allergy Intermediate Rash Verified 11/11/18 06:33 Penicillins Allergy Intermediate Anxiety Verified 11/11/18 06:33 promethazine HCl * Allergy Intermediate Hallucinati Verified 11/11/18 06:33 [From Phenergan] ons aripiprazole [From Abilify] Allergy Unknown Verified 11/11/18 06:33 dabrafenib Allergy Rash Verified 11/11/18 06:33 - Social History Does the pt smoke?: No Smoking Status: Never smoker Does the pt drink ETOH?: No Does the pt have substance abuse?: Yes PD ED PE NORMAL - Vitals Vital signs reviewed: Yes - General General: Alert and oriented X 3, Well developed/nourished, Other (appears uncomfortable, listless) - HEENT HEENT: Moist mucous membranes, Pharynx benign - Neck Neck: Supple, no meningeal sign - Cardiac Cardiac: No murmur - Respiratory Respiratory: No respiratory distress, Clear bilaterally - Abdomen Abdomen: Soft, Non tender, Non distended - Back Back: No CVA TTP - Derm Derm: Normal color, Warm and dry, No rash - Extremities Extremities: No edema - Neuro Neuro: Alert and oriented X 3 Eye Opening: Spontaneous Motor: Obeys Commands Verbal: Oriented GCS Score: 15 PD ED PE EXPANDED - Cardiac Cardiac: Tachy, Regular Rhythm Results - Vitals Vitals: Vital Signs - 24 hr 11/11/18 11/11/18 11/11/18 05:55 06:46 07:10 Temperature 38.0 C H Heart Rate 145 H 125 H 119 H Respiratory 20 18 20 Rate Blood Pressure 123/60 93/64 76/49 L O2 Saturation 97 100 100 11/11/18 11/11/18 11/11/18 07:17 07:34 07:45 Temperature Heart Rate 120 H 116 H 110 H Respiratory 20 20 20 Rate Blood Pressure 86/50 L 74/38 L 80/48 L O2 Saturation 100 99 99 11/11/18 08:00 Temperature Heart Rate 107 H Respiratory 20 Rate Blood Pressure 93/45 L O2 Saturation 97 Oxygen O2 Source Room air - Labs Labs: Laboratory Tests 11/11/18 11/11/18 11/11/18 06:15 06:15 06:15 WBC 10.7 RBC 4.39 Hgb 12.0 Hct 36.0 L MCV 82.0 MCH 27.3 MCHC 33.2 RDW 14.9 Plt Count 221 MPV 7.7 L Neut # (Auto) 9.2 H Lymph # (Auto) 0.[address] [place] # (Auto) 0.8 Eos # (Auto) 0.2 Baso # (Auto) 0.0 Absolute Nucleated RBC 0.02 Nucleated RBC % 0.2 Sodium 131 L Potassium 3.4 L Chloride 97 L Carbon Dioxide 22 Anion Gap 12.0 BUN 12 Creatinine 1.1 H Estimated GFR (MDRD) 54 L Glucose 103 H Lactic Acid 2.8 H Calcium 9.1 Total Bilirubin 0.4 AST 53 H ALT 26 Alkaline Phosphatase 238 H Lactate Dehydrogenase Total Protein 6.5 L Albumin 3.3 Globulin 3.2 Albumin/Globulin Ratio 1.0 Lipase 27 TSH Free T4 HCG, Quant Cortisol AM Sample Urine Color Urine Clarity Urine pH Ur Specific [place] Urine Protein Urine Glucose (UA) Urine Ketones Urine Occult Blood Urine Nitrite Urine Bilirubin Urine Urobilinogen Ur Leukocyte Esterase Ur Microscopic Review Urine Culture Comments Urine HCG, Qual Urine Opiates Screen Ur Oxycodone Screen Urine Methadone Screen Ur Propoxyphene Screen Ur Barbiturates Screen Ur Tricyclics Screen Ur Phencyclidine Scrn Ur Amphetamine Screen U Methamphetamines Scrn U Benzodiazepines Scrn Urine Cocaine Screen U Cannabinoids Screen Influenza A (Rapid) Influenza B (Rapid) 11/11/18 11/11/18 11/11/18 06:15 06:15 06:15 WBC RBC Hgb Hct MCV MCH MCHC RDW Plt Count MPV Neut # (Auto) Lymph # (Auto) [place] # (Auto) Eos # (Auto) Baso # (Auto) Absolute Nucleated RBC Nucleated RBC % Sodium Potassium Chloride Carbon Dioxide Anion Gap BUN Creatinine Estimated GFR (MDRD) Glucose Lactic Acid Calcium Total Bilirubin AST ALT Alkaline Phosphatase Lactate Dehydrogenase 235 H Total Protein Albumin Globulin Albumin/Globulin Ratio Lipase TSH 0.38 Free T4 0.63 HCG, Quant 0.74 Cortisol AM Sample Urine Color Urine Clarity Urine pH Ur Specific [place] Urine Protein Urine Glucose (UA) Urine Ketones Urine Occult Blood Urine Nitrite Urine Bilirubin Urine Urobilinogen Ur Leukocyte Esterase Ur Microscopic Review Urine Culture Comments Urine HCG, Qual Urine Opiates Screen Ur Oxycodone Screen Urine Methadone Screen Ur Propoxyphene Screen Ur Barbiturates Screen Ur Tricyclics Screen Ur Phencyclidine Scrn Ur Amphetamine Screen U Methamphetamines Scrn U Benzodiazepines Scrn Urine Cocaine Screen U Cannabinoids Screen Influenza A (Rapid) Influenza B (Rapid) 11/11/18 11/11/18 11/11/18 06:15 06:37 06:55 WBC RBC Hgb Hct MCV MCH MCHC RDW Plt Count MPV Neut # (Auto) Lymph # (Auto) [place] # (Auto) Eos # (Auto) Baso # (Auto) Absolute Nucleated RBC Nucleated RBC % Sodium Potassium Chloride Carbon Dioxide Anion Gap BUN Creatinine Estimated GFR (MDRD) Glucose Lactic Acid Calcium Total Bilirubin AST ALT Alkaline Phosphatase Lactate Dehydrogenase Total Protein Albumin Globulin Albumin/Globulin Ratio Lipase TSH Free T4 HCG, Quant Cortisol AM Sample 22.6 Urine Color DARK YELLOW Urine Clarity CLEAR Urine pH 5.0 Ur Specific [place] >=1.030 H Urine Protein TRACE Urine Glucose (UA) NEGATIVE Urine Ketones TRACE Urine Occult Blood NEGATIVE Urine Nitrite NEGATIVE Urine Bilirubin NEGATIVE Urine Urobilinogen 0.2 (NORMAL) Ur Leukocyte Esterase NEGATIVE Ur Microscopic Review NOT INDICATED Urine Culture Comments NOT INDICATED Urine HCG, Qual Urine Opiates Screen Ur Oxycodone Screen Urine Methadone Screen Ur Propoxyphene Screen Ur Barbiturates Screen Ur Tricyclics Screen Ur Phencyclidine Scrn Ur Amphetamine Screen U Methamphetamines Scrn U Benzodiazepines Scrn Urine Cocaine Screen U Cannabinoids Screen Influenza A (Rapid) Negative Influenza B (Rapid) Negative 11/11/18 11/11/18 06:55 06:55 WBC RBC Hgb Hct MCV MCH MCHC RDW Plt Count MPV Neut # (Auto) Lymph # (Auto) [place] # (Auto) Eos # (Auto) Baso # (Auto) Absolute Nucleated RBC Nucleated RBC % Sodium Potassium Chloride Carbon Dioxide Anion Gap BUN Creatinine Estimated GFR (MDRD) Glucose Lactic Acid Calcium Total Bilirubin AST ALT Alkaline Phosphatase Lactate Dehydrogenase Total Protein Albumin Globulin Albumin/Globulin Ratio Lipase TSH Free T4 HCG, Quant Cortisol AM Sample Urine Color Urine Clarity Urine pH Ur Specific [place] >=1.030 H Urine Protein Urine Glucose (UA) Urine Ketones Urine Occult Blood Urine Nitrite Urine Bilirubin Urine Urobilinogen Ur Leukocyte Esterase Ur Microscopic Review Urine Culture Comments Urine HCG, Qual NEGATIVE Urine Opiates Screen POSITIVE H Ur Oxycodone Screen NEGATIVE Urine Methadone Screen NEGATIVE Ur Propoxyphene Screen NEGATIVE Ur Barbiturates Screen POSITIVE H Ur Tricyclics Screen POSITIVE H Ur Phencyclidine Scrn POSITIVE H Ur Amphetamine Screen NEGATIVE U Methamphetamines Scrn POSITIVE H U Benzodiazepines Scrn POSITIVE H Urine Cocaine Screen NEGATIVE U Cannabinoids Screen NEGATIVE Influenza A (Rapid) Influenza B (Rapid) PD MEDICAL DECISION MAKING - ED course Complexity details: reviewed old records, reviewed results, re-evaluated patient, considered differential, d/w patient ED course: Patient's tachycardia improved with fluids (from 140s down to upper 110s after 1 liter IV NS, given via port), as did her general appearance. She appeared more comfortable and no longer listless after 1 liter NS. unfortunately, her blood pressure decreased during IV fluids from 120s SBP to 90s, then 80s and after completion of 1 liter, she was 70s SBP (despite appearing well). A second liter of NS was started and decision made to admit for further testing/treatment. D/W Dr. Iniguez, accepts to hospitalist service. Departure - Departure Disposition: 66 [facility] DC/Xfer Clinical Impression: Fever Qualifiers: Fever type: unspecified Qualified Code(s): R50.9 - Fever, unspecified Hypotension Qualifiers: Hypotension type: unspecified hypotension type Qualified Code(s): I95.9 - Hypotension, unspecified Condition: Stable Discharge Date/Time: 11/11/18 08:22
[2018-11-11] MEDS ORDERED: SODIUM CHLORIDE 0.9% 1,000 ML IV STA (06:18)
[2018-11-11 06:27] LABS: BASOPHILS % (AUTO) 0.5 %; EOSINOPHILS # (AUTO) 0.2 10^3/uL (0.0-0.7); EOSINOPHILS % (AUTO) 1.6 %; LYMPHOCYTES # (AUTO) 0.4 10^3/uL (1.5-3.5); LYMPHOCYTES % (AUTO) 4.2 %; MEAN CORPUSCULAR HEMOGLOBIN 27.3 pg (27.0-31.0); MEAN CORPUSCULAR HGB CONC 33.2 g/dL (32.0-36.0); MEAN PLATELET VOLUME 7.7 fL (7.9-10.8); MONOCYTES # (AUTO) 0.8 10^3/uL (0.0-1.0); MONOCYTES % (AUTO) 7.4 %; NEUTROPHILS # (AUTO) 9.2 10^3/uL (1.5-6.6); NEUTROPHILS % (AUTO) 86.3 %; PLT - PLATELET COUNT 221 10^3/uL (130-450); RED BLOOD COUNT 4.39 10^6/uL (4.20-5.40); RED CELL DISTRIBUTION WIDTH 14.9 % (12.0-15.0); WHITE BLOOD COUNT 10.7 x10^3/uL (4.8-10.8)
[2018-11-11] MEDS ORDERED: IBUPROFEN 400 MG TABLET PO STA (06:34)
[2018-11-11 06:43] LABS: ALBUMIN 3.3 g/dL (3.2-5.5); BILIRUBIN,TOTAL 0.4 mg/dL (0.2-1.0); CALCIUM 9.1 mg/dL (8.5-10.3); CREATININE 1.1 mg/dL (0.4-1.0); TOTAL PROTEIN 6.5 g/dL (6.7-8.2)
[2018-11-11 06:59] LABS: GLUCOSE, URINE (UA) NEGATIVE (NEGATIVE); KETONES,URINE (UA) TRACE mg/dL (NEGATIVE); LEUKOCYTE ESTERASE, URINE NEGATIVE (NEGATIVE); NITRITE,URINE NEGATIVE (NEGATIVE); OCCULT BLOOD,URINE NEGATIVE (NEGATIVE); PROTEIN,URINE TRACE mg/dL (NEGATIVE); UROBILINOGEN,URINE 0.2 (NORMAL) E.U./dL (NORMAL)
[2018-11-11 07:08] LABS: BILIRUBIN,URINE NEGATIVE (NEGATIVE); CLARITY,URINE CLEAR (CLEAR); ICTOTEST,URINE NEGATIVE
[2018-11-11] MEDS ORDERED: SODIUM CHLORIDE 0.9% 500 ML IV ONE (07:30)
[2018-11-11] MEDS ORDERED: IPRATROPIUM 0.2 MG/ML NEB INH PRN (08:02)
[2018-11-11] MEDS ORDERED: ONDANSETRON ODT 4 MG TABLET TL PRN (08:02)
[2018-11-11] MEDS ORDERED: SODIUM CHLORIDE FLUSH 0.9% 10 ML SYRINGE IVP PRN (08:02)
[2018-11-11] MEDS ORDERED: ALBUTEROL NEB 2.5 MG/3 ML INH PRN (08:02)
[2018-11-11] MEDS ORDERED: EPINEPHrine 1 MG/ML AMP IM PRN (08:07)
[2018-11-11] MEDS ORDERED: LIDOCAINE TOP PRN (08:07)
[2018-11-11] MEDS ORDERED: [UNRECOGNIZED DRUG - OTHER] TOP PRN (08:07)
[2018-11-11 08:51] LABS: THYROID STIMULATING HORMONE 0.38 uIU/mL (0.34-5.60)
[2018-11-11 08:53] LABS: FREE T4 (FREE THYROXINE) 0.63 ng/dL (0.58-1.64)
[2018-11-11 09:04] LABS: MUDS CUTOFF CONCENTRATIONS CUTOFF CONC BELOW:
[2018-11-11 09:10] LABS: HCG UR QUAL NEGATIVE
[2018-11-11] MEDS: LACTATED RINGERS 1,000 ML IV SCH ×5 (09:14→23:46)
[2018-11-11] MEDS: FAMOTIDINE 20 MG/50 ML 50 ML IV SCH ×2 (09:20→21:06)
[2018-11-11 09:21] LABS: AMPHETAMINE SCREEN,URINE NEGATIVE (NEGATIVE); BENZODIAZEPINES SCREEN, URINE POSITIVE (NEGATIVE); COCAINE SCREEN URINE NEGATIVE (NEGATIVE); METHADONE SCREEN, URINE NEGATIVE (NEGATIVE); METHAMPHETAMINES SCREEN, URINE POSITIVE (NEGATIVE); OPIATE SCREEN, URINE POSITIVE (NEGATIVE); TRICYCLIC ANTIDEPRESSANT,URINE POSITIVE (NEGATIVE)
[2018-11-11 09:22] LABS: OXYCODONE SCREEN, URINE NEGATIVE (NEGATIVE); PROPOXYPHENE SCREEN, URINE NEGATIVE (NEGATIVE)
--- NOTE | 2018-11-11 10:42 | HISTORY & PHYSICAL EXAMINATION ---
Chief Complaint - Chief Complaint Chief Complaint: Fatigue with fevers and chills History of Present Illness - Admitted From Admitted From:: Home - History Obtained From Records Reviewed: Yes History obtained from: Patient and Exam Limitations: None - History of Present Illness HPI Comment/Other: 43 y/o female with hx of metastatic melanoma who receives daily Tafinlar and immunotx q3 weeks, has a viable left port-a-cath saw Dr. Raza previously and currently sees oncology at [facility] for which she is scheduled for an MRI next week. Patient p/w 12 days of fever which had been controlled with tylenol, although she says fever would consistently return if she did not take tylenol Q8 hours. She says that her hem/onc doctor told her that as long as the fever was controlled with tylenol (able to drop below 100.4 with tylenol), she did not need to be emergently evaluated. This morning at 3 AM , her fever was over 102 and then increased to over 103 after tylenol and thus she came to ED. She c/o generalized myalgias and fatigue. Patient's last dose of immunotx was 11/03/18, denies rashes, diarrhea, GI/ symptoms, chest pain, sick contacts or recent travel. On initial exam patient was tachycardic was given 1 liter iVF and had subsequent hypotension with sBP 70's, non-hypoxemic, non-tachypneic, and Tmax 38 in ED. Patient's workup showed a lactic acid 2.8, WBC 10.7 (prev 4 on 10/23), LFT's slightly elevated with a clean UA, Na 131, cr 1.1, Flu neg. Patient does have hx suicidal ideation and has bipolar d/o, chronic atypical migraine COFFMAN's, IBS, GERD. Patient was admitted for possible underlying sepsis however no identifiable causes, SIRS by criteria to be admitted to ICU for possible pressor support via port and will hold off on empiric IV abx's. Patient was originally diagnosed in 2001 with cutaneous melanoma of the right shoulder, s/p excision w/ local and metastatic recurrence in 2018. She is currently on ipilimumab (Yervoy) and had to restart dabrafenib (Taflinar) for rapid regrowth of tumor. Dr Rosario from [place] [place] recommended to continue Taflinar while we proceed with with cycle 3, and 4 of Yervoy, she has not had significant toxicity per Dr Rosario and would continue with this regimen. Dr Rosario did discuss with patient in the future if she does not respond to Taflinar they would consider enrollment on the advanced melanoma TIL study, which is expected to open in January 2019. 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, Other Derm: reports: Skin cancer surgery - POLST Patient has POLST: No Meds/Allgy - Home Medications Home Medications: Ambulatory Orders Medication Instructions Recorded Confirmed Omeprazole 40 mg PO BID 03/23/13 11/11/18 Venlafaxine ER [Effexor ER] 225 mg PO DAILY 03/23/13 11/11/18 Amiloride HCl 5 mg PO DAILY 02/20/16 11/11/18 Hydroxychloroquine [Plaquenil] 400 mg PO DAILY 02/20/16 11/11/18 Multivitamin [Multivitamins] 1 each PO DAILY 02/20/16 11/11/18 raNITIdine [Zantac] 150 mg PO BID 02/20/16 11/11/18 EPINEPHrine [Epipen 2-Nat] 0.3 mg IJ PRN PRN 12/30/17 11/11/18 Folic Acid 1 mg PO DAILY 12/30/17 11/11/18 Meloxicam 7.5 mg PO 1400 12/30/17 11/11/18 Prazosin HCl 1 mg PO QPM 12/30/17 11/11/18 clonazePAM [KlonoPIN] 0.5 tab PO BID PRN 01/05/18 11/11/18 Cyclobenzaprine [Flexeril] 10 mg PO TID PRN 01/25/18 11/11/18 Lurasidone HCl [Latuda] 60 mg PO QPM 01/25/18 11/11/18 Magnesium Oxide [Magnesium] 800 mg PO DAILY 01/25/18 11/11/18 Malic Acid 1 cap PO DAILY 01/25/18 11/11/18 Melatonin 10 mg PO DAILY 01/25/18 11/11/18 Prednisone 5 - 20 mg PO DAILY PRN 05/03/18 11/11/18 Lidocaine/Prilocain 2.5% Cream 30 gm TOP 1-2XD PRN #1 tube 05/04/18 11/11/18 [Emla 2.5% Cream] Ondansetron HCl [Zofran] 4 mg PO Q4H PRN #30 tablet 07/26/18 11/11/18 Bupropion HCl [Bupropion Xl] 300 mg PO DAILY 11/11/18 11/11/18 Dabrafenib Mesylate [Tafinlar] 150 mg PO BID 11/11/18 11/11/18 Isometheptene Mucate 65 mg PO QID 11/11/18 11/11/18 Lamotrigine [Lamotrigine ER] 200 mg PO QPM 11/11/18 11/11/18 Oxycodone HCl/Acetaminophen 1 tab PO Q6H PRN 11/11/18 11/11/18 [Oxycodone-Acetaminophen 10-325] Zolpidem Tartrate [Ambien] 10 mg PO QPM PRN 11/11/18 11/11/18 - Allergies Allergies/Adverse Reactions: Allergies Allergy/AdvReac Type Severity Reaction Status Date / Time peanut Allergy Severe Anaphylaxis Verified 11/11/18 08:44 azithromycin [From Zithromax] Allergy Intermediate Rash Verified 11/11/18 06:33 Penicillins Allergy Intermediate Anxiety Verified 11/11/18 06:33 promethazine HCl * Allergy Intermediate Hallucinati Verified 11/11/18 06:33 [From Phenergan] ons aripiprazole [From Abilify] Allergy Unknown Verified 11/11/18 06:33 dabrafenib Allergy Rash Verified 11/11/18 06:33 Review of Systems - Constitutional Constitutional: reports: Fatigue, Fever, Chills, Weakness, Poor appetite - Cardiovascular Cariovascular: denies: Palpitations, Chest pain, Edema - Respiratory Respiratory: reports: Cough. denies: Sputum production, Wheezing - Gastrointestinal Gastrointestinal: denies: Abdominal pain, Abdominal distention, Constipation, Diarrhea - Genitourinary Genitourinary: denies: Dysuria, Frequency, Hematuria, Flank pain - Musculoskeletal Musculoskeletal: denies: Muscle pain, Back pain, Muscle aches - Integumentary Integumentary: reports: Lumps. denies: Rash, Pruritis, Lesions - Neurological Neurological: denies: General weakness, Dizziness - Psychiatric Psychiatric: denies: Depression, Anxiety, Suicidal, Delusions, Hallucinations - Endocrine Endocrine: denies: Polyuria, Polydypsia - Hematologic/Lymphatic Hematologic/Lymphatic: denies: Anemia, Bruising, Petechiae - All Other Systems All Other Systems: reports: Reviewed and negative Prior Level of Functionality: Patient is independent with her ADL's at home Exam - Vital Signs Reviewed Vital Signs: Yes Vital Signs: Vital Signs x48h Temp Pulse Pulse Resp BP BP Pulse Ox 11/11/18 09:00 103 H 16 96/55 L 96 11/11/18 08:40 37.5 C 105 H 17 86/57 L 97 11/11/18 08:15 102 H 20 96/47 L 96 11/11/18 08:00 107 H 20 93/45 L 97 11/11/18 07:45 110 H 20 80/48 L 99 11/11/18 07:34 116 H 20 74/38 L 99 11/11/18 07:17 120 H 20 86/50 L 100 11/11/18 07:10 119 H 20 76/49 L 100 11/11/18 06:46 125 H 18 93/64 100 11/11/18 05:55 38.0 C H 145 H 20 123/60 97 Vital Signs 11/11/18 11/11/18 11/11/18 05:55 06:46 07:10 Temperature 38.0 C H Heart Rate 145 H 125 H 119 H Heart Rate [ Monitoring electrodes] Respiratory 20 18 20 Rate Blood Pressure 123/60 93/64 76/49 L Blood Pressure [Left Brachial artery] O2 Saturation 97 100 100 11/11/18 11/11/18 11/11/18 07:17 07:34 07:45 Temperature Heart Rate 120 H 116 H 110 H Heart Rate [ Monitoring electrodes] Respiratory 20 20 20 Rate Blood Pressure 86/50 L 74/38 L 80/48 L Blood Pressure [Left Brachial artery] O2 Saturation 100 99 99 11/11/18 11/11/18 11/11/18 08:00 08:15 08:40 Temperature 37.5 C Heart Rate 107 H 102 H Heart Rate [ 105 H Monitoring electrodes] Respiratory 20 20 17 Rate Blood Pressure 93/45 L 96/47 L Blood Pressure 86/57 L [Left Brachial artery] O2 Saturation 97 96 97 11/11/18 09:00 Temperature Heart Rate Heart Rate [ 103 H Monitoring electrodes] Respiratory 16 Rate Blood Pressure Blood Pressure 96/55 L [Left Brachial artery] O2 Saturation 96 - Physical Exam General Appearance: positive: No acute distress, Alert Eyes Bilateral: positive: Normal inspection, PERRL, EOMI, Conjunctivae nml, No scleral icterus ENT: positive: ENT inspection nml, Pharynx nml, No signs of dehydration. negative: Oral lesions Neck: positive: Nml inspection, Thyroid nml, No JVD, Trachea midline. negative: Thyromegaly Respiratory: positive: Chest non-tender, No respiratory distress, Breath sounds nml. negative: Wheezes, Rales, Rhonchi Cardiovascular: positive: Regular rate & rhythm, No murmur, No gallop. negative: Irregularly irregular, JVD present, Systolic murmur, Diastolic murmur, Gallop/S4 Peripheral Pulses: positive: 2+ Abdomen: positive: Non-tender, No organomegaly, Nml bowel sounds, No distention. negative: Tenderness, Hepatomegaly, Splenomegaly Back: positive: Nml inspection. negative: CVA tenderness (R), CVA tenderness (L) Skin: positive: Color nml, No rash, Warm, Other (there is 2x2 cm palpable semi circumscribed non-mobile soft tissue mass located at the base of posterior neck.). negative: Skin rash Extremities: positive: Non-tender, Full ROM, Nml appearance Neurologic/Psychiatric: positive: Oriented x3, CN's nml (2-12) Sepsis Event Note (H) - Evaluation Possible source of Sepsis: positive: Unknown - Sepsis Criteria Sepsis Criteria: Recorded Heart Rate greater than 90 bpm, WBC count greater than 12,000 or less than 4000, SBP less than 90 mmHg Conclusion/Plan - Problem List (1) SIRS (systemic inflammatory response syndrome) Conclusion/Plan: Patient p/w tachycardia, hypotension, lactic acidosis with WBC 10.7, however may have a "blunted" or immunocompromised response due to daily chemotx/immunotx q 3 weeks, last dose on 11-04, would need 2 sets of blood cultures peripherally and 1 obtained from por-a-cath site. Still requiring aggressive IVF resuscitation. Will defer on IV abx for now. Flu negative. Lactic acid cycling. daily labs, coritisol level, TSg/fret 4 level, UDS due to prior hx suicidal ideation however drug to drug interaction may be present. DDx: PE due to tachy and hypotension in the setting of active cancer but no hypoxemia. Check CXR. (2) Fever of unknown origin (FUO) Conclusion/Plan: Patient with a 12 day hx of cyclical fevers treated with tylenol w/ no other symptomatic signs which would indicate lung, blood, urine infectious source. Await blood cultures from peripheral and por-a-cath site, defer off IV abx for now. DDx: PE, IE, line sepsis. (3) Lactic acid acidosis Conclusion/Plan: Initially mildly elevated and now down to 0.8, continue to cycle. (4) Hyponatremia Conclusion/Plan: Appears evolemic, may respond to fluid restriction, siadh in the setting of mets possible as well. Renal function preserved, contin with high volume LR for now. (5) Transaminasemia Conclusion/Plan: Maybe R/T to mets process vs underlying infection with no symptoms of abdominal pain. Continue to monitor. (6) History of melanoma Conclusion/Plan: Patient has a 2x2 cm non-mobile soft tissue mass to base of posterior neck w/ prior resection presumedly the site of melanoma. Continues on oral chemotx agent with Tafinlar daily to resume. Immunotx q 3 weeks. However, I explained that if infection is present chemotx would need to be held due to immunocompromised state in the setting of an infection. Patient states metastatic spread to lymp nodes adjacent to ovaries, kidneys and chest per hx, scheduled for a PET scan next week. Denies FLIGHT STEWARD symptoms other than her chronic atypical migraines, would perform MRI if AMS ensues or severe headaches are observed. - Lab Results Fish Bones: 11/11/18 06:15 11/11/18 06:15 - Diagnostic Imaging Results Diagnostic Imaging Results: positive: Final report reviewed (CXR) - EKG Results EKG Interpreted Independently: No - Other Other Results/Comments: Total critical care time: 35 minutes Core Measures - Anticipated LOS I expect patient to be DC'd or transferred within 96 hours.: Yes - Issues Hospital Issues and Management Plan: IVF resuscitation and pressor support if needed, may need IV abx if blood cultures positive with draw blood cultures from port-a-cath site. - DVT/VTE - Prophylaxis VTE/DVT Device ordered at admit?: No Not Ordered - Medical Reason: Not indicated VTE/DVT Prophylaxis med ordered at admit?: Yes - Stroke - Rehab Assessment Rehab services assessment to be ordered?: No Not Ordered - Medical Reason: Not indicated - AMI - Statin at Admit Aspirin Prescribed on Admit: No Not Ordered - Medical Reason: Not indicated
[2018-11-11] MEDS: ENOXAPARIN 40 MG/0.4 ML SYRINGE SUBQ SCH (11:16)
[2018-11-11] MEDS: CHOLECALCIFEROL 5,000 UNIT CAPSULE PO SCH (11:16)
[2018-11-11] MEDS: MULTIVITAMIN TABLET PO SCH (11:17)
[2018-11-11] MEDS: SODIUM CHLORIDE FLUSH 0.9% 10 ML SYRINGE IVP SCH ×2 (11:17→18:23)
[2018-11-11] MEDS: VENLAFAXINE ER 75 MG CAPSULE PO SCH (11:17)
[2018-11-11] MEDS: FOLIC ACID 1 MG TABLET PO SCH (11:17)
[2018-11-11] MEDS: HYDROXYCHLOROQUINE 200 MG TABLET PO SCH (11:18)
[2018-11-11] MEDS: MAGNESIUM OXIDE 400 MG TABLET PO SCH (12:11)
[2018-11-11] MEDS: ONDANSETRON 4 MG/2 ML VIAL IVP PRN ×2 (12:15→18:25)
[2018-11-11] MEDS ORDERED: ZOLPIDEM 5 MG TABLET PO PRN (13:01)
[2018-11-11] MEDS ORDERED: CYCLOBENZAPRINE 10 MG TABLET PO PRN (13:01)
[2018-11-11] MEDS: LAMOTRIGINE 200 MG PO SCH ×2 (13:13→13:15)
[2018-11-11] MEDS: TAFINLAR 75 MG PO SCH ×2 (13:15→21:08)
--- NOTE | 2018-11-11 13:36 | XRAY Report ---
Reason: FUO Procedure Date: 11/11/2018 Accession Number: [id number] / [id number] Procedure: XR - Chest 1 View X-Ray CPT Code: 36878 FULL RESULT: EXAM: CHEST RADIOGRAPHY EXAM DATE: 11/11/2018 01:12 PM. CLINICAL HISTORY: FUO. COMPARISON: CHEST 2 VIEW 09/27/2018 12:15 PM. TECHNIQUE: 1 view. FINDINGS: Lungs/Pleura: Clear. No effusion or pneumothorax. Mediastinum: Within exam limitations, the cardiomediastinal contour is normal. Other: Left Port-A-Cath. IMPRESSION: No acute disease. RADIA
[2018-11-11] MEDS: SODIUM CHLORIDE FLUSH 0.9% 10 ML SYRINGE IVP PRN (14:53)
[2018-11-11] MEDS: ACETAMINOPHEN 325 MG TABLET PO PRN (15:45)
[2018-11-11] MEDS: clonazePAM 0.5 MG TABLET PO PRN ×2 (16:27→16:29)
[2018-11-11] MEDS: [UNRECOGNIZED DRUG - OTHER] PO SCH ×3 (16:28→21:07)
[2018-11-11] MEDS: HYDROmorphone 0.5 MG/0.5 ML SYRINGE IVP PRN ×2 (18:51→23:46)
[2018-11-11] MEDS: IBUPROFEN 800 MG TABLET PO PRN (18:53)
[2018-11-11] MEDS ORDERED: LURASIDONE HCL 60 MG PO SCH (21:00)
[2018-11-11] MEDS ORDERED: MELATONIN 10 MG PO SCH (21:00)
[2018-11-11] MEDS ORDERED: LAMOTRIGINE 200 MG PO SCH (21:00)
[2018-11-11] MEDS ORDERED: DABRAFENIB MESYLATE PO SCH (21:00)
[2018-11-12] MEDS: ACETAMINOPHEN 325 MG TABLET PO PRN ×2 (00:38→09:18)
[2018-11-12] MEDS: SODIUM CHLORIDE FLUSH 0.9% 10 ML SYRINGE IVP SCH ×2 (01:12→08:57)
[2018-11-12] MEDS: IBUPROFEN 800 MG TABLET PO PRN (03:12)
[2018-11-12] MEDS: ONDANSETRON 4 MG/2 ML VIAL IVP PRN (03:32)
[2018-11-12] MEDS: LACTATED RINGERS 1,000 ML IV SCH (03:32)
[2018-11-12 05:28] LABS: BASOPHILS # (AUTO) 0.1 10^3/uL (0.0-0.1); BASOPHILS % (AUTO) 0.6 %; EOSINOPHILS # (AUTO) 0.1 10^3/uL (0.0-0.7); EOSINOPHILS % (AUTO) 1.2 %; HGB - HEMOGLOBIN 9.5 g/dL (12.0-16.0); LYMPHOCYTES # (AUTO) 0.3 10^3/uL (1.5-3.5); LYMPHOCYTES % (AUTO) 3.3 %; MEAN CORPUSCULAR HEMOGLOBIN 27.8 pg (27.0-31.0); MEAN CORPUSCULAR HGB CONC 33.6 g/dL (32.0-36.0); MEAN CORPUSCULAR VOLUME 82.6 fL (81.0-99.0); MEAN PLATELET VOLUME 7.6 fL (7.9-10.8); MONOCYTES # (AUTO) 0.6 10^3/uL (0.0-1.0); MONOCYTES % (AUTO) 7.2 %; NEUTROPHILS # (AUTO) 7.7 10^3/uL (1.5-6.6); NEUTROPHILS % (AUTO) 87.7 %; PLT - PLATELET COUNT 172 10^3/uL (130-450); RED BLOOD COUNT 3.43 10^6/uL (4.20-5.40); RED CELL DISTRIBUTION WIDTH 14.7 % (12.0-15.0); WHITE BLOOD COUNT 8.8 x10^3/uL (4.8-10.8)
[2018-11-12 05:39] LABS: ALBUMIN 2.6 g/dL (3.2-5.5); ALKALINE PHOSPHATASE 174 IU/L (42-121); ALT ALANINE AMINOTRANSFERASE 18 IU/L (10-60); AST ASPARTATE AMINOTRANSFERASE 35 IU/L (10-42); BILIRUBIN,TOTAL < 0.2 mg/dL (0.2-1.0); BUN - BLOOD UREA NITROGEN 9 mg/dL (6-20); CARBON DIOXIDE - CO2 23 mmol/L (21-32); CHLORIDE 100 mmol/L (101-111); CREATININE 0.7 mg/dL (0.4-1.0); GFR - MDRD 91 (>89); GLUCOSE 178 mg/dL (70-100); SODIUM 133 mmol/L (135-145); TOTAL PROTEIN 5.2 g/dL (6.7-8.2)
[2018-11-12] MEDS ORDERED: GI COCKTAIL 120 ML BOTTLE PO PRN (06:56)
[2018-11-12] MEDS ORDERED: LACTATED RINGERS 1,000 ML IV SCH (07:04)
[2018-11-12] MEDS ORDERED: POTASSIUM CHLORIDE INJ 40 MEQ in SODIUM CHLORIDE 0.9% 480 ML IV ONE (08:00)
[2018-11-12] MEDS: MULTIVITAMIN TABLET PO SCH ×2 (08:44→08:51)
[2018-11-12] MEDS: CHOLECALCIFEROL 5,000 UNIT CAPSULE PO SCH (08:52)
[2018-11-12] MEDS: FOLIC ACID 1 MG TABLET PO SCH (08:52)
[2018-11-12] MEDS: MAGNESIUM OXIDE 400 MG TABLET PO SCH (08:55)
[2018-11-12] MEDS: HYDROXYCHLOROQUINE 200 MG TABLET PO SCH (08:56)
[2018-11-12] MEDS: ENOXAPARIN 40 MG/0.4 ML SYRINGE SUBQ SCH (08:56)
[2018-11-12] MEDS ORDERED: CHOLECALCIFEROL 1,000 UNIT TABLET PO SCH (09:00)
[2018-11-12] MEDS ORDERED: CALCIUM CARBONATE CHEW 500 MG TABLET PO SCH (09:00)
[2018-11-12] MEDS ORDERED: FAMOTIDINE 20 MG TABLET PO SCH (09:00)
[2018-11-12] MEDS ORDERED: buPROPion XL 150 MG TABLET PO SCH (09:00)
[2018-11-12] MEDS ORDERED: MALIC ACID PO SCH (09:00)
[2018-11-12] MEDS: [UNRECOGNIZED DRUG - OTHER] PO SCH ×2 (09:12→12:08)
[2018-11-12] MEDS: TAFINLAR 75 MG PO SCH (09:12)
[2018-11-12] MEDS: VENLAFAXINE ER 75 MG CAPSULE PO SCH (09:18)
[2018-11-12] MEDS ORDERED: PANTOPRAZOLE 40 MG VIAL IVP SCH (10:00)
[2018-11-12] MEDS ORDERED: methylPREDNISolone SUCCINATE 125 MG/2 ML VIAL IVP SCH (11:00)
[2018-11-12] MEDS ORDERED: SODIUM CHLORIDE FLUSH 0.9% 10 ML SYRINGE IVP PRN (11:44)
--- NOTE | 2018-11-12 11:47 | DISCHARGE SUMMARY ---
Discharge Summary Admit Date: 11/11/18 Discharge Date: 11/12/18 Discharging Provider: Dr. Iniguez Primary Care Provider: Mickie Luis Code Status: Attempt Resuscitation Condition at Discharge: Stable Discharge Disposition: 01 Home, Self Care - DIAGNOSES Admission Diagnoses: (1) SIRS (systemic inflammatory response syndrome) (2) Fever of unknown origin (FUO) (3) Lactic acid acidosis (4) Hyponatremia (5) Transaminasemia (6) History of melanoma Discharge Diagnoses with Status of Each Condition: (1) SIRS (systemic inflammatory response syndrome) (2) Fever of unknown origin (FUO) (3) Lactic acid acidosis (4) Hyponatremia (5) Transaminasemia (6) History of melanoma - HPI History of Present Illness: 43 y/o female with hx of metastatic melanoma who receives daily Tafinlar and immunotx q3 weeks, has a viable left port-a-cath saw Dr. Raza previously and currently sees oncology at [facility] for which she is scheduled for an MRI next week. Patient p/w 12 days of fever which had been controlled with tylenol, although she says fever would consistently return if she did not take tylenol Q8 hours. She says that her hem/onc doctor told her that as long as the fever was controlled with tylenol (able to drop below 100.4 with tylenol), she did not need to be emergently evaluated. This morning at 3 AM , her fever was over 102 and then increased to over 103 after tylenol and thus she came to ED. She c/o generalized myalgias and fatigue. Patient's last dose of immunotx was 11/03/18, denies rashes, diarrhea, GI/ symptoms, chest pain, sick contacts or recent travel. On initial exam patient was tachycardic was given 1 liter iVF and had subsequent hypotension with sBP 70's, non-hypoxemic, non-tachypneic, and Tmax 38 in ED. Patient's workup showed a lactic acid 2.8, WBC 10.7 (prev 4 on 10/23), LFT's slightly elevated with a clean UA, Na 131, cr 1.1, Flu neg. Patient does have hx suicidal ideation and has bipolar d/o, chronic atypical migraine COFFMAN's, IBS, GERD. Patient was admitted for possible underlying sepsis however no identifiable causes, SIRS by criteria to be admitted to ICU for possible pressor support via port and will hold off on empiric IV abx's. Patient was originally diagnosed in 2001 with cutaneous melanoma of the right shoulder, s/p excision w/ local and metastatic recurrence in 2018. She is currently on ipilimumab (Yervoy) and had to restart dabrafenib (Taflinar) for rapid regrowth of tumor. Dr Rosario from [facility] recommended to continue Taflinar while we proceed with with cycle 3, and 4 of Yervoy, she has not had significant toxicity per Dr Rosario and would continue with this regimen. Dr Rosario did discuss with patient in the future if she does not respond to Taflinar they would consider enrollment on the advanced melanoma TIL study, which is expected to open in January 2019. - HOSPITAL COURSE Hospital Course: Patient was admitted for SIRS, FUO, lactic acidosis with no identifiable infectious causes. Patiet was initially worked up for sepsis, p/w tachycardia, hypotension, hyponatremia, mildly elevated LFT's, lactic acidosis with WBC 10.7, however may have a "blunted" or immunocompromised response due to daily chemotx/immunotx q 3 weeks, last dose on 11/04, Had 2 sets of blood cultures peripherally and 1 obtained from por-a-cath site have not yielded a pathogen. Much improved with the exception of low K of 2.8 and lactic acidosis of 3.6, with 2 sets of blood cultures NGTD after 1 day. Will defer on IV abx for now. Flu negative. , coritisol level, TSg/free 4 level were normal, CXR was negative, Patient was seen to have a 2x2 cm non-mobile soft tissue mass to base of posterior neck w/ prior resection presumedly the site of melanoma. Continues on oral chemotx agent with Tafinlar daily that was continued while being hospitalized with immediate side effects after taking the the YERVOY, she takes the Immunotx q 3 weeks. However, I explained that if infection is present chemotx would need to be held due to immunocompromised state in the setting of an infection. Patient states metastatic spread to lymph nodes adjacent to ovaries, kidneys and chest per hx, scheduled for a PET scan next week. 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 Patient to return to her Oncologist at the [facility] as scheduled and they have arranged for prednisone administration which 1 dose of solumedrol was given here and she would resume all her home meds. Rx for PO dilaudid will be given for her COFFMAN's and or pains along with cycling ibuprofen with Tylenol PRN for her spiking temps, FUO likely reltaed to her chemo-immuno tx regimen with side effects showing up as fever. - ALLERGIES Allergies/Adverse Reactions: Allergies Allergy/AdvReac Type Severity Reaction Status Date / Time peanut Allergy Severe Anaphylaxis Verified 11/11/18 08:44 azithromycin [From Zithromax] Allergy Intermediate Rash Verified 11/11/18 06:33 Penicillins Allergy Intermediate Anxiety Verified 11/11/18 06:33 promethazine HCl * Allergy Intermediate Hallucinati Verified 11/11/18 06:33 [From Phenergan] ons aripiprazole [From Abilify] Allergy Unknown Verified 11/11/18 06:33 dabrafenib Allergy Rash Verified 11/11/18 06:33 - MEDICATIONS Home Medications: Ambulatory Orders Medication Instructions Recorded Confirmed Omeprazole 40 mg PO BID 03/23/13 11/11/18 Venlafaxine ER [Effexor ER] 225 mg PO DAILY 03/23/13 11/11/18 Amiloride HCl 5 mg PO DAILY 02/20/16 11/11/18 Hydroxychloroquine [Plaquenil] 400 mg PO DAILY 02/20/16 11/11/18 Multivitamin [Multivitamins] 1 each PO DAILY 02/20/16 11/11/18 raNITIdine [Zantac] 150 mg PO BID 02/20/16 11/11/18 EPINEPHrine [Epipen 2-Ant] 0.3 mg IJ PRN PRN 12/30/17 11/11/18 Folic Acid 1 mg PO DAILY 12/30/17 11/11/18 Prazosin HCl 1 mg PO QPM 12/30/17 11/11/18 clonazePAM [KlonoPIN] 0.5 tab PO BID PRN 01/05/18 11/11/18 Cyclobenzaprine [Flexeril] 10 mg PO TID PRN 01/25/18 11/11/18 Lurasidone HCl [Latuda] 60 mg PO QPM 01/25/18 11/11/18 Magnesium Oxide [Magnesium] 800 mg PO DAILY 01/25/18 11/11/18 Malic Acid 1 cap PO DAILY 01/25/18 11/11/18 Melatonin 10 mg PO DAILY 01/25/18 11/11/18 Prednisone 5 - 20 mg PO DAILY PRN 05/03/18 11/11/18 Lidocaine/Prilocain 2.5% Cream 30 gm TOP 1-2XD PRN #1 tube 05/04/18 11/11/18 [Emla 2.5% Cream] Ondansetron HCl [Zofran] 4 mg PO Q4H PRN #30 tablet 07/26/18 11/11/18 Bupropion HCl [Bupropion Xl] 300 mg PO DAILY 11/11/18 11/11/18 Dabrafenib Mesylate [Tafinlar] 150 mg PO BID 11/11/18 11/11/18 Isometheptene Mucate 65 mg PO QID 11/11/18 11/11/18 Lamotrigine [Lamotrigine ER] 200 mg PO QPM 11/11/18 11/11/18 Zolpidem Tartrate [Ambien] 10 mg PO QPM PRN 11/11/18 11/11/18 HYDROmorphone [Dilaudid] 2 mg PO Q4H PRN #40 tablet 11/12/18 Ibuprofen [Motrin] 800 mg PO Q6HR PRN #60 tablet 11/12/18 - PHYSICAL EXAM AT DISCHARGE General Appearance: positive: No acute distress Eyes Bilateral: positive: Normal inspection, PERRL ENT: positive: ENT inspection nml, Pharynx nml, No signs of dehydration. negative: Oral lesions Neck: positive: Nml inspection, Thyroid nml, No JVD, Trachea midline, Other (psterior base of neck with mass). negative: Thyromegaly, Carotid bruit, Swelling/bruising Cardiovascular: positive: Regular rate & rhythm, No murmur, No gallop. negative: Irregularly irregular, Systolic murmur, Diastolic murmur, Gallop/S3 Peripheral Pulses: positive: 2+ Abdomen: positive: Non-tender, No organomegaly, Nml bowel sounds, No distention. negative: Tenderness Back: positive: Nml inspection Skin: positive: Color nml, No rash, Warm Extremities: positive: Non-tender, Full ROM, Nml appearance. negative: Pedal edema Neurologic/Psychiatric: positive: Oriented x3, CN's nml (2-12) - LABS Result Diagrams: 11/12/18 05:22 11/12/18 05:22 - SEPSIS Possible source of Sepsis: Unknown, Other (SIRS, no source for lactic acidosis ) Sepsis Criteria: Recorded Heart Rate greater than 90 bpm, Metabolic: lactate > 2 mmol/L - FOLLOW UP Follow Up: PCP in 1-2 weeks. New SUPERVISOR FILTRATION Rula Moore. Patient to return to her Oncologist at the [facility] [place] as scheduled. - TIME SPENT Time Spent in Discharge (Minutes): 35
--- NOTE | 2018-11-12 11:52 | Discharge Plan ---
Discharge Plan Disposition: Home, Self Care Condition: Stable Prescriptions: Ibuprofen [Motrin] 800 mg PO Q6HR PRN #60 tablet PRN Reason: T>100.7 or headaches HYDROmorphone [Dilaudid] 2 mg PO Q4H PRN #40 tablet PRN Reason: Headaches, pain Diet: Regular Activity Restrictions: No Restrictions Shower Restrictions: No Driving Restrictions: No Weight Bearing: Full Weight Instruction Topics: Diet High Potassium Dc, ED Narcotic Abuse, ED Potassium Deficiency Additional Instructions or Follow Up instructions: Resume home meds. Will be given prednisone at home by other provider who will make arrangements to administer steroids. Will give ibuprofen to cycle with Tylenol for spiking temps, will call back if blood cultures are positive and call in prescription for Abx's. Resume home meds. No Smoking: If you smoke, Please STOP! Call for help. Follow-up with: Provider,Other [Physician No Access] - (Dr. Robyn Rosario. Patient to return to her Oncologist at the [facility] as scheduled) Rula Moore ARNP, R[facility]-C [Credentialed Staff Provider] - 2 Weeks Summer Alejandro PA-C [Provider Admit Priv/Credential] - 2 Weeks
[2018-11-12] MEDS: SODIUM CHLORIDE FLUSH 0.9% 10 ML SYRINGE IVP PRN (12:08)
[2018-11-12 12:38] VITALS: BP 96/59
[2018-11-13] MEDS ORDERED: POTASSIUM CHLORIDE 20 MEQ TABLET PO SCH (08:00)
== END 2018-11-12 12:49 | disposition home or self-care (01) | DRG 864 ==
LOC: ED 05:51 → ICU 08:02
PROVIDERS: ADMIT Family Medicine; ATTEND Family Medicine
DX: R50.9 Fever, unspecified (principal); R65.10 Systemic inflammatory response syndrome (SIRS) of non-infectious origin without acute organ dysfunction; C77.2 Secondary and unspecified malignant neoplasm of intra-abdominal lymph nodes; E87.2 Acidosis; E87.1 Hypo-osmolality and hyponatremia; Z92.21 Personal history of antineoplastic chemotherapy; I10 Essential (primary) hypertension; J45.909 Unspecified asthma, uncomplicated; K21.9 Gastro-esophageal reflux disease without esophagitis; F31.9 Bipolar disorder, unspecified; F41.9 Anxiety disorder, unspecified; F41.0 Panic disorder [episodic paroxysmal anxiety]; M79.7 Fibromyalgia; M06.9 Rheumatoid arthritis, unspecified; Z90.49 Acquired absence of other specified parts of digestive tract; C43.60 Malignant melanoma of unspecified upper limb, including shoulder; Z79.52 Long term (current) use of systemic steroids; R00.0 Tachycardia, unspecified; I95.9 Hypotension, unspecified; R74.0 Nonspecific elevation of levels of transaminase and lactic acid dehydrogenase [LDH]; G43.909 Migraine, unspecified, not intractable, without status migrainosus; K58.9 Irritable bowel syndrome, unspecified; R79.89 Other specified abnormal findings of blood chemistry
CPT/HCPCS: 36415; 71045; 80053; 80306; 81001; 81003; 81025; 82533; 83605; 83615; 83690; 84439; 84443; 84702; 85025; 87040; 87086; 87150; 87275; 87276; 93005; 96360; 96361; 99284; 99285

== ENCOUNTER 2018-12-17 11:41 | Emergency (ER) | payer OTHER ==
[2018-12-17 12:29] LABS: BASOPHILS # (AUTO) 0.1 10^3/uL (0.0-0.1); BASOPHILS % (AUTO) 0.7 %; EOSINOPHILS # (AUTO) 0.3 10^3/uL (0.0-0.7); EOSINOPHILS % (AUTO) 4.2 %; HGB - HEMOGLOBIN 10.4 g/dL (12.0-16.0); LYMPHOCYTES # (AUTO) 2.2 10^3/uL (1.5-3.5); LYMPHOCYTES % (AUTO) 27.1 %; MEAN CORPUSCULAR HEMOGLOBIN 27.4 pg (27.0-31.0); MEAN CORPUSCULAR VOLUME 80.4 fL (81.0-99.0); MEAN PLATELET VOLUME 7.3 fL (7.9-10.8); MONOCYTES # (AUTO) 0.9 10^3/uL (0.0-1.0); MONOCYTES % (AUTO) 10.6 %; NEUTROPHILS # (AUTO) 4.6 10^3/uL (1.5-6.6); NEUTROPHILS % (AUTO) 57.4 %; PLT - PLATELET COUNT 349 10^3/uL (130-450); RED CELL DISTRIBUTION WIDTH 14.3 % (12.0-15.0); WHITE BLOOD COUNT 8.1 x10^3/uL (4.8-10.8)
[2018-12-17] MEDS ORDERED: LACTATED RINGERS 1,000 ML IV STA (12:29)
[2018-12-17] MEDS ORDERED: SODIUM CHLORIDE 0.9% 1,000 ML IV ONE (12:29)
[2018-12-17] MEDS ORDERED: ONDANSETRON 4 MG/2 ML VIAL IVP STA (12:29)
--- NOTE | 2018-12-17 12:33 | ED Physician Documentation ---
PD HPI NVD - Stated complaint Stated Complaint: V/DIARRHEA - Chief complaint Chief Complaint: Abd Pain - History obtained from History obtained from: Patient, Family, Other ([facility] - History of Present Illness Timing - onset: Other (This is a 43-year-old woman with metastatic melanoma undergoing treatment at the [facility] on immunotherapy. She change the current immunotherapy regimen about 4 weeks ago. About 7 days ago she developed diarrhea that has been increasing associated with a fever of 101.9 this morning. She has had increased nausea, and abdominal cramping. She denies recent foreign travel, she did go [place] [employer] but that was local. No recent antibiotics or camping. No hematochezia.) Review of Systems Constitutional: reports: Fever, Fatigue Nose: reports: Rhinorrhea / runny nose (chronic) Cardiac: denies: Chest pain / pressure, Palpitations Respiratory: reports: Cough (mild). denies: Dyspnea GI: reports: Nausea, Diarrhea. denies: Abdominal Pain, Abdominal Swelling, Vomiting, Hematemesis, Bloody / black stool : denies: Dysuria, Frequency PD PAST MEDICAL HISTORY - Past Medical History Cardiovascular: Hypertension Respiratory: Asthma, Pneumonia Neuro: None Endocrine/Autoimmune: None GI: GERD : None HEENT: None Psych: Depression, Anxiety, Bipolar disorder, Panic attacks Musculoskeletal: Fibromyalgia, Rheumatoid arthritis Derm: None Other Past Medical History: Metistatic melanoma. 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, Other Derm: Skin cancer surgery - Present Medications Home Medications: Ambulatory Orders Medication Instructions Recorded Confirmed Omeprazole 40 mg PO BID 03/23/13 11/11/18 Venlafaxine ER [Effexor ER] 225 mg PO DAILY 03/23/13 11/11/18 Amiloride HCl 5 mg PO DAILY 02/20/16 11/11/18 Hydroxychloroquine [Plaquenil] 400 mg PO DAILY 02/20/16 11/11/18 Multivitamin [Multivitamins] 1 each PO DAILY 02/20/16 11/11/18 raNITIdine [Zantac] 150 mg PO BID 02/20/16 11/11/18 EPINEPHrine [Epipen 2-Ant] 0.3 mg IJ PRN PRN 12/30/17 11/11/18 Folic Acid 1 mg PO DAILY 12/30/17 11/11/18 Prazosin HCl 1 mg PO QPM 12/30/17 11/11/18 clonazePAM [KlonoPIN] 0.5 tab PO BID PRN 01/05/18 11/11/18 Cyclobenzaprine [Flexeril] 10 mg PO TID PRN 01/25/18 11/11/18 Lurasidone HCl [Latuda] 60 mg PO QPM 01/25/18 11/11/18 Magnesium Oxide [Magnesium] 800 mg PO DAILY 01/25/18 11/11/18 Malic Acid 1 cap PO DAILY 01/25/18 11/11/18 Melatonin 10 mg PO DAILY 01/25/18 11/11/18 Lidocaine/Prilocain 2.5% Cream 30 gm TOP 1-2XD PRN #1 tube 05/04/18 11/11/18 [Emla 2.5% Cream] Ondansetron HCl [Zofran] 4 mg PO Q4H PRN #30 tablet 07/26/18 11/11/18 Bupropion HCl [Bupropion Xl] 300 mg PO DAILY 11/11/18 11/11/18 Isometheptene Mucate 65 mg PO QID 11/11/18 11/11/18 Lamotrigine [Lamotrigine ER] 200 mg PO QPM 11/11/18 11/11/18 Zolpidem Tartrate [Ambien] 10 mg PO QPM PRN 11/11/18 11/11/18 HYDROmorphone [Dilaudid] 2 mg PO Q4H PRN #40 tablet 11/12/18 Ibuprofen [Motrin] 800 mg PO Q6HR PRN #60 tablet 11/12/18 Binimetinib [Mektovi] mg PO 12/17/18 Dicyclomine [Bentyl] 20 mg PO QID PRN #15 capsule 12/17/18 Encorafenib [Braftovi] 12/17/18 Metoclopramide [Reglan] 10 mg PO Q6H PRN #20 tablet 12/17/18 - Allergies Allergies/Adverse Reactions: Allergies Allergy/AdvReac Type Severity Reaction Status Date / Time peanut Allergy Severe Anaphylaxis Verified 12/17/18 11:56 azithromycin [From Zithromax] Allergy Intermediate Rash Verified 12/17/18 11:56 Penicillins Allergy Intermediate Anxiety Verified 12/17/18 11:56 promethazine HCl * Allergy Intermediate Hallucinati Verified 12/17/18 11:56 [From Phenergan] ons aripiprazole [From Abilify] Allergy Unknown Verified 12/17/18 11:56 dabrafenib Allergy Rash Verified 12/17/18 11:56 - Social History Does the pt smoke?: No Smoking Status: Never smoker Does the pt drink ETOH?: No Does the pt have substance abuse?: Yes - Family History Family history: reports: Non contributory - Immunizations Immunizations are current?: No Immunizations: TDAP >10years/unknown - POLST Patient has POLST: No PD ED PE NORMAL - Vitals Vital signs reviewed: Yes - General General: Alert and oriented X 3, No acute distress - HEENT HEENT: PERRL, EOMI - Neck Neck: Supple, no meningeal sign, No bony TTP - Cardiac Cardiac: RRR, No murmur - Respiratory Respiratory: No respiratory distress, Clear bilaterally - Abdomen Abdomen: Soft, Non tender - Back Back: No CVA TTP, No spinal TTP - Derm Derm: Normal color, Warm and dry - Extremities Extremities: No edema, No calf tenderness / cord - Neuro Neuro: Alert and oriented X 3, Normal speech - Psych Psych: Normal mood, Normal affect Results - Vitals Vitals: Vital Signs - 24 hr 12/17/18 11:52 Heart Rate 117 H Respiratory 18 Rate Blood Pressure 126/70 O2 Saturation 99 Oxygen O2 Source Room air - Labs Labs: Laboratory Tests 12/17/18 12/17/18 12/17/18 12:20 12:20 12:20 WBC 8.1 RBC 3.80 L Hgb 10.4 L Hct 30.5 L MCV 80.4 L MCH 27.4 MCHC 34.0 RDW 14.3 Plt Count 349 MPV 7.3 L Neut # (Auto) 4.6 Lymph # (Auto) 2.2 [place] # (Auto) 0.9 Eos # (Auto) 0.3 Baso # (Auto) 0.1 Absolute Nucleated RBC 0.00 Nucleated RBC % 0.0 Manual Slide Review Indicated WBC Morphology NORMAL APPEARANCE Platelet Estimate NORMAL (130-450,000) Platelet Morphology 1+ LARGE PLATELETS RBC Morph Micro Appear NORMAL APPEARANCE Sodium 138 Potassium 3.8 Chloride 100 L Carbon Dioxide 26 Anion Gap 12.0 BUN 12 Creatinine 0.9 Estimated GFR (MDRD) 68 L Glucose 93 Lactic Acid 0.8 Calcium 8.8 Total Bilirubin 0.5 AST 11 ALT < 10 L Alkaline Phosphatase 97 Total Protein 6.6 L Albumin 3.3 Globulin 3.3 Albumin/Globulin Ratio 1.0 Lipase 27 PD MEDICAL DECISION MAKING - ED course ED course: This is a 43-year-old woman undergoing immunotherapy for metastatic melanoma who presents with 8 days of diarrhea. She had a fever today at home but her blood work and temperature here are reassuring. She is nontender on examination. Stool was collected and sent for C. difficile and culture and she is hydrated and her nausea is treated. Departure - Departure Disposition: 01 Home, Self Care Clinical Impression: Diarrhea Qualifiers: Diarrhea type: presumed infectious Qualified Code(s): R19.7 - Diarrhea, unspecified Condition: Good Record reviewed to determine appropriate education?: Yes Instructions: ED Diarrhea Viral Prescriptions: Dicyclomine [Bentyl] 20 mg PO QID PRN #15 capsule PRN Reason: Abdominal Pain Metoclopramide [Reglan] 10 mg PO Q6H PRN #20 tablet PRN Reason: nausea or headache Comments: If an infectious agents comes up from the testing on the stool we will call you, the timeframe for that is variable depending on what test becomes positive. Return for new or worsening symptoms.
[2018-12-17 13:00] LABS: ALBUMIN 3.3 g/dL (3.2-5.5); ALKALINE PHOSPHATASE 97 IU/L (42-121); ALT ALANINE AMINOTRANSFERASE < 10 IU/L (10-60); AST ASPARTATE AMINOTRANSFERASE 11 IU/L (10-42); BILIRUBIN,TOTAL 0.5 mg/dL (0.2-1.0); BUN - BLOOD UREA NITROGEN 12 mg/dL (6-20); CREATININE 0.9 mg/dL (0.4-1.0); GFR - MDRD 68 (>89); LIPASE 27 U/L (22-51); TOTAL PROTEIN 6.6 g/dL (6.7-8.2)
[2018-12-17 13:09] LABS: CALCIUM 8.8 mg/dL (8.5-10.3); CARBON DIOXIDE - CO2 26 mmol/L (21-32); CHLORIDE 100 mmol/L (101-111); GLUCOSE 93 mg/dL (70-100); PLATELET ESTIMATE, MANUAL NORMAL (130-450,000) (NORMAL); PLATELET MORPHOLOGY 1+ LARGE PLATELETS (NORMAL); RBC MORPHOLOGY (MULTIPLE) NORMAL APPEARANCE (NORMAL); SODIUM 138 mmol/L (135-145)
[2018-12-17] MEDS ORDERED: METOCLOPRAMIDE 10 MG/2 ML VIAL IVP STA (13:41)
[2018-12-17 13:55] VITALS: BP 121/69
--- NOTE | 2018-12-17 19:46 | ED Physician Documentation ---
ED Addendum - Addendum Addendum: 12/17/18 19:46 To call from lab, she was positive for C. difficile. I spoke with the by phone, they use [facility] in [place], she was called in a prescription for Flagyl 500 mg p.o. 3 times daily for 14 days no refills.
== END 2018-12-17 14:36 | disposition home or self-care (01) ==
LOC: ED 11:41
DX: A04.72 Enterocolitis due to Clostridium difficile, not specified as recurrent (principal); C43.9 Malignant melanoma of skin, unspecified; I10 Essential (primary) hypertension
CPT/HCPCS: 36415; 80053; 83605; 83690; 85025; 87040; 87045; 87046; 87493; 96374; 96375; 99283; 99284; J2765; J7120

== ENCOUNTER 2018-12-20 09:56 | Emergency (ER) | payer OTHER ==
--- NOTE | 2018-12-20 10:37 | ED Physician Documentation ---
History of Present Illness - Stated complaint Stated Complaint: V/D - Chief complaint Chief Complaint: General - History obtained from History obtained from: Patient, Family - Additonal information Additional information: Patient is a 43-year-old female with history of metastatic melanoma, mental health issues, and other presenting with her and family with concern for persistent abdominal pain accompanied by nausea, vomiting, decreased urination, loose stools over the past several days, as well as confusion. Per chart review and family report, patient was seen several days ago in this ED and diagnosed with C. difficile and started on appropriate medication. reports that patient has had difficult time keeping this medication and her baseline medications including medications for thyroid disease and adrenal gland insufficiency down because of vomiting. Patient also has no desire to eat. Patient does have multiple antiemetics at home including Zofran ODT, but states that the pill will not melt in the patient's mouth appropriately. also reports confusion without inciting incident, fall, or trauma and this started over the past several days. Patient and family otherwise denies fever, neck pain, back pain, headache, vision changes, chest pain, difficulty breathing, cough, rash. Patient does have port in place which has not shown signs of infection or other complication.Patient is followed in the [place] area by oncology and family has contacted the oncology staff several times.There are no particular improving or worsening factors to her symptoms. Review of Systems Constitutional: denies: Fever Eyes: denies: Reviewed and negative Ears: denies: Reviewed and negative Nose: denies: Reviewed and negative Throat: denies: Reviewed and negative Cardiac: denies: Reviewed and negative Respiratory: denies: Reviewed and negative GI: reports: Abdominal Pain, Nausea, Vomiting, Diarrhea : denies: Reviewed and negative Skin: denies: Rash Musculoskeletal: denies: Neck pain, Back pain Neurologic: reports: Confused PD PAST MEDICAL HISTORY - Past Medical History Past Medical History: Yes Cardiovascular: Hypertension Respiratory: Asthma, Pneumonia Neuro: None Endocrine/Autoimmune: None GI: GERD : None HEENT: None Psych: Depression, Anxiety, Bipolar disorder, Panic attacks Musculoskeletal: Fibromyalgia, Rheumatoid arthritis Derm: None 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: Breast reduction, Other Derm: Skin cancer surgery - Present Medications Home Medications: Ambulatory Orders Medication Instructions Recorded Confirmed RX: Omeprazole 40 mg PO BID 03/23/13 11/11/18 RX: Venlafaxine ER [Effexor ER] 225 mg PO DAILY 03/23/13 11/11/18 RX: Amiloride HCl 5 mg PO DAILY 02/20/16 11/11/18 RX: Hydroxychloroquine [Plaquenil] 400 mg PO DAILY 02/20/16 11/11/18 RX: Multivitamin [Multivitamins] 1 each PO DAILY 02/20/16 11/11/18 RX: raNITIdine [Zantac] 150 mg PO BID 02/20/16 11/11/18 RX: EPINEPHrine [Epipen 2-Ant] 0.3 mg IJ PRN PRN 12/30/17 11/11/18 RX: Folic Acid 1 mg PO DAILY 12/30/17 11/11/18 RX: Prazosin HCl 1 mg PO QPM 12/30/17 11/11/18 RX: clonazePAM [KlonoPIN] 0.5 tab PO BID PRN 01/05/18 11/11/18 Malic Acid 1 cap PO DAILY 01/25/18 11/11/18 RX: Cyclobenzaprine [Flexeril] 10 mg PO TID PRN 01/25/18 11/11/18 RX: Lurasidone HCl [Latuda] 60 mg PO QPM 01/25/18 11/11/18 RX: Magnesium Oxide [Magnesium] 800 mg PO DAILY 01/25/18 11/11/18 RX: Melatonin 10 mg PO DAILY 01/25/18 11/11/18 RX: Lidocaine/Prilocain 2.5% Cream 30 gm TOP 1-2XD PRN #1 tube 05/04/18 11/11/18 [Emla 2.5% Cream] RX: Ondansetron HCl [Zofran] 4 mg PO Q4H PRN #30 tablet 07/26/18 11/11/18 Isometheptene Mucate 65 mg PO QID 11/11/18 11/11/18 RX: Bupropion HCl [Bupropion Xl] 300 mg PO DAILY 11/11/18 11/11/18 RX: Lamotrigine [Lamotrigine ER] 200 mg PO QPM 11/11/18 11/11/18 RX: Zolpidem Tartrate [Ambien] 10 mg PO QPM PRN 11/11/18 11/11/18 HYDROmorphone [Dilaudid] 2 mg PO Q4H PRN #40 tablet 11/12/18 RX: Ibuprofen [Motrin] 800 mg PO Q6HR PRN #60 tablet 11/12/18 Binimetinib [Mektovi] mg PO 12/17/18 Metoclopramide [Reglan] 10 mg PO Q6H PRN #20 tablet 12/17/18 RX: Dicyclomine [Bentyl] 20 mg PO QID PRN #15 capsule 12/17/18 RX: Encorafenib [Braftovi] 12/17/18 Cephalexin [Keflex] 500 mg PO BID #14 capsule 12/20/18 Promethazine Supp [Phenergan Supp] 25 mg MO Q6HR #14 supp 12/20/18 - Allergies Allergies/Adverse Reactions: Allergies Allergy/AdvReac Type Severity Reaction Status Date / Time peanut Allergy Severe Anaphylaxis Verified 12/20/18 10:12 azithromycin [From Zithromax] Allergy Intermediate Rash Verified 12/20/18 10:12 Penicillins Allergy Intermediate Anxiety Verified 12/20/18 10:12 promethazine HCl * Allergy Intermediate Hallucinati Verified 12/20/18 10:12 [From Phenergan] ons aripiprazole [From Abilify] Allergy Unknown Verified 12/20/18 10:12 dabrafenib Allergy Rash Verified 12/20/18 10:12 sugar substitute Allergy Unknown Uncoded 12/20/18 11:19 - Social History Does the pt smoke?: No Smoking Status: Never smoker Does the pt drink ETOH?: No Does the pt have substance abuse?: Yes - Immunizations Immunizations are current?: No Immunizations: TDAP >10years/unknown - POLST Patient has POLST: No PD ED PE NORMAL - General General: No acute distress, Well developed/nourished (Interactive with exam and making purposeful and spontaneous movements. Animated on face and otherwise appears slightly dazed.) - HEENT HEENT: Atraumatic, PERRL, EOMI, Moist mucous membranes, Pharynx benign, Other (Gross visual acuity intact. No nystagmus.) - Neck Neck: Supple, no meningeal sign - Cardiac Cardiac: RRR, No murmur, Other (Port in place of her chest without complication or signs of infection.) - Respiratory Respiratory: No respiratory distress, Clear bilaterally - Abdomen Abdomen: Normal bowel sounds, Soft, Non distended, Other (Mild abdominal discomfort throughout with no focal tenderness, Blevins sign, McBurney point tenderness, rebound.) - Derm Derm: Normal color, Warm and dry, No rash - Extremities Extremities: No tenderness to palpate, No edema - Neuro Neuro: remote broadcast engineer 2-12 intact, No motor deficit, No sensory deficit, Normal speech, Other (Oriented to person and place, but not time) - Psych Psych: Other (Appears dazed/confused) Results - Vitals Vitals: Vital Signs - 24 hr 12/20/18 12/20/18 12/20/18 10:05 12:30 12:36 Temperature 37.8 C H Heart Rate 137 H 125 H Respiratory 16 16 Rate Blood Pressure 129/76 112/84 H O2 Saturation 98 100 100 12/20/18 14:57 Temperature 36.6 C Heart Rate 127 H Respiratory 17 Rate Blood Pressure 114/74 O2 Saturation 100 Oxygen O2 Source Room air - EKG (time done) 1148 Rate: Rate (enter#) (137) Rhythm: Sinus tachycardia Ischemia: Non specific changes - Labs Labs: Laboratory Tests 12/20/18 12/20/18 12/20/18 10:29 10:29 10:29 WBC 8.6 RBC 3.86 L Hgb 10.5 L Hct 30.4 L MCV 78.8 L MCH 27.1 MCHC 34.4 RDW 14.1 Plt Count 359 MPV 7.8 L Neut # (Auto) 4.0 Lymph # (Auto) 2.7 [place] # (Auto) 1.2 H Eos # (Auto) 0.6 Baso # (Auto) 0.1 Absolute Nucleated RBC 0.00 Nucleated RBC % 0.0 Sodium 130 L Potassium 2.9 L Chloride 93 L Carbon Dioxide 26 Anion Gap 11.0 BUN 9 Creatinine 0.6 Estimated GFR (MDRD) 109 Glucose 141 H Lactic Acid Calcium 8.4 L Total Bilirubin 0.6 AST 18 ALT 12 Alkaline Phosphatase 148 H Troponin I < 0.04 Total Protein 6.6 L Albumin 3.0 L Globulin 3.6 Albumin/Globulin Ratio 0.8 L Lipase 36 Urine Color Urine Clarity Urine pH Ur Specific [place] Urine Protein Urine Glucose (UA) Urine Ketones Urine Occult Blood Urine Nitrite Urine Bilirubin Urine Urobilinogen Ur Leukocyte Esterase Urine RBC Urine WBC Ur Squamous Epith Cells Urine Bacteria Urine Mucus Ur Microscopic Review Urine Culture Comments Influenza A (Rapid) Influenza B (Rapid) 12/20/18 12/20/18 12/20/18 11:22 12:10 12:35 WBC RBC Hgb Hct MCV MCH MCHC RDW Plt Count MPV Neut # (Auto) Lymph # (Auto) [place] # (Auto) Eos # (Auto) Baso # (Auto) Absolute Nucleated RBC Nucleated RBC % Sodium Potassium Chloride Carbon Dioxide Anion Gap BUN Creatinine Estimated GFR (MDRD) Glucose Lactic Acid 1.3 Calcium Total Bilirubin AST ALT Alkaline Phosphatase Troponin I Total Protein Albumin Globulin Albumin/Globulin Ratio Lipase Urine Color DARK YELLOW Urine Clarity HAZY Urine pH 5.5 Ur Specific [place] >=1.030 H Urine Protein 100 H Urine Glucose (UA) NEGATIVE Urine Ketones 15 H Urine Occult Blood NEGATIVE Urine Nitrite POSITIVE H Urine Bilirubin NEGATIVE Urine Urobilinogen 1 (NORMAL) Ur Leukocyte Esterase TRACE H Urine RBC 0-5 Urine WBC 4-5 Ur Squamous Epith Cells FEW Squamous Urine Bacteria Many H Urine Mucus Marked Strands Ur Microscopic Review INDICATED Urine Culture Comments INDICATED Influenza A (Rapid) Negative Influenza B (Rapid) Negative PD MEDICAL DECISION MAKING - ED course Complexity details: reviewed old records, reviewed results, re-evaluated rex pizano, considered differential, d/w patient, d/w family, d/w reporting consultant ED course: Patient was recently seen in this ED and diagnosed with C. difficile, which could be a large contributor to her abdominal complaints. Patient and note that her symptoms have improved since initiation of antibiotics, but not completely resolved. Abdominal exam is relatively benign and do not have high suspicion for new complication from an intra-abdominal standpoint such as new obstruction, diverticulitis, mass or other complication. Do not feel she requires immediate imaging of her abdomen. However, do feel that imaging of chest and head are appropriate. Given patient's immuno-compromised state from her cancer, feel appropriate to evaluate for possible pneumonia or other complication on chest x-ray. Additionally, more importantly, feel appropriate to obtain CT head to further evaluate for mass, bleed, stroke or other issue related to her new onset confusion. Considered encephalopathy and meningitis, but feel much less likely, particularly given evaluation. I have lower suspicion for other systemic infectious processes, but considered. Also have low suspicion for other etiologies such as PE, ACS, myocardial infarction, and others, but considered. Patient does have history of thyroid and adrenal disease, but do not find evidence of thyroid storm, adrenal crisis, or other acute pathology related to this. Patient started on IV fluids for hydration and provided with multi-antiemetics. During her entire ED stay, there was no witnessed vomiting or reported vomiting per patient or family. All imaging returned unremarkable for acute pathology. EKG and troponin also returned negative. Flu swab also obtained to further evaluate for possible viral etiolo gies, which returned negative. Lab work, including cultures, obtained which did not show evidence of leukocytosis, but mild hyponatremia and hypokalemia, which was addressed with IV fluids and oral potassium replenishment.Did not have concern for hypoglycemia as patient's glucose 141.However, urinalysis sample, which was sent for culture, revealed infection. [place] appropriate to start IV antibiotics here and given adverse reaction of anxiety, still felt that Rocephin was appropriate, particularly after speaking with pharmacy. Both myself and nursing returned to the room, reevaluated patient and spoke with family multiple times. Requested that patient try an oral challenge to see if she would be able to handle more fluid/food intake and hold down medications, particularly for home, but patient repeatedly refused.At this time, do not find evidence of persistent dehydration that would require continued IV administration of fluids or admission. Also do not find an issue on workup that would require admission, particularly [facility]. Discussed results and recommendations with patient and offered prescriptions for additional antibiotic to target UTI, as well as Phenergan suppositories to assist with any persistent nausea and vomiting at home. Unfortunately, patient's family was particularly upset by this plan and angry with myself and staff. ED director also spoke with patient. Patient's oncology PA and I spoke on the phone extensively as well. Per her report, patient is somewhat difficult to manage and patient and were directed to come to [place] multiple times before arriving to our ED. PA discussed possible admission here for continued IV fluid so that patient does not bounce back to the ED, although it was discussed that there are no findings to warrant such from an ER standpoint. Also discussed patient and 's ability to travel to [place] safely and be admitted locally under her oncologist if necessary. Also offered for the PA to speak to our hospitalist for direct admission if that is what they truly felt was necessary, although I do not. At this time, it appears that patient will still be discharged and will likely travel to [place] to follow with her oncologist locally. Departure - Departure Disposition: 01 Home, Self Care Clinical Impression: Nausea and vomiting, Hypokalemia, Urinary tract infection Condition: Good Instructions: Hypokalemia Dc, ED Diet Vomiting Diarrhea, ED UTI Cystitis Female, ED Nausea Vomiting Follow-Up: Rula Moore ARNP, [employer] [Primary Care Provider] - Prescriptions: Promethazine Supp [Phenergan Supp] 25 mg MO Q6HR #14 supp Cephalexin [Keflex] 500 mg PO BID #14 capsule Comments: Please continue all home medications as previously instructed. Please use your Zofran under the tongue medication as needed for nausea and vomiting. May also supplementWith Phenergan suppository. Recommend hydration with Pedialyte, Powerade, Gatorade and advancing diet as tolerated. Please continue antibiotic recently prescribed and add new antibiotics of Keflex to address bladder infection or urinary tract infection. Please follow-up with your primary care physician and specialist in the next 1-2 days and return to ED sooner if explains worsening symptoms or other concerns. Discharge Date/Time: 12/20/18 15:05
[2018-12-20] MEDS ORDERED: SODIUM CHLORIDE 0.9% 1,000 ML IV ONE (10:49)
[2018-12-20] MEDS ORDERED: ONDANSETRON 4 MG/2 ML VIAL IVP STA (10:50)
[2018-12-20 11:07] LABS: BASOPHILS # (AUTO) 0.1 10^3/uL (0.0-0.1); BASOPHILS % (AUTO) 1.1 %; EOSINOPHILS # (AUTO) 0.6 10^3/uL (0.0-0.7); EOSINOPHILS % (AUTO) 6.7 %; HGB - HEMOGLOBIN 10.5 g/dL (12.0-16.0); LYMPHOCYTES # (AUTO) 2.7 10^3/uL (1.5-3.5); LYMPHOCYTES % (AUTO) 31.2 %; MEAN CORPUSCULAR HEMOGLOBIN 27.1 pg (27.0-31.0); MEAN CORPUSCULAR HGB CONC 34.4 g/dL (32.0-36.0); MEAN CORPUSCULAR VOLUME 78.8 fL (81.0-99.0); MEAN PLATELET VOLUME 7.8 fL (7.9-10.8); MONOCYTES # (AUTO) 1.2 10^3/uL (0.0-1.0); MONOCYTES % (AUTO) 14.5 %; NEUTROPHILS % (AUTO) 46.5 %; PLT - PLATELET COUNT 359 10^3/uL (130-450); RED BLOOD COUNT 3.86 10^6/uL (4.20-5.40); RED CELL DISTRIBUTION WIDTH 14.1 % (12.0-15.0); WHITE BLOOD COUNT 8.6 x10^3/uL (4.8-10.8)
[2018-12-20 11:19] LABS: ALBUMIN/GLOBULIN RATIO 0.8 (1.0-2.2); BILIRUBIN,TOTAL 0.6 mg/dL (0.2-1.0); CALCIUM 8.4 mg/dL (8.5-10.3); CREATININE 0.6 mg/dL (0.4-1.0); TOTAL PROTEIN 6.6 g/dL (6.7-8.2)
--- NOTE | 2018-12-20 11:52 | CT Report ---
Reason: melanoma with low grade fever Procedure Date: 12/20/2018 Accession Number: [id number] / [id number] Procedure: CT - HEAD WO CPT Code: FULL RESULT: EXAM: CT HEAD EXAM DATE: 12/20/2018 10:58 AM. CLINICAL HISTORY: Melanoma with low grade fever. COMPARISON: BRAIN W/WO 01/29/2018 2:50 PM. TECHNIQUE: Multiaxial CT images were obtained from the foramen magnum to the vertex. Reformats: Sagittal and coronal. IV contrast: None. In accordance with CT protocol optimization, one or more of the following dose reduction techniques were utilized for this exam: automated exposure control, adjustment of mA and/or KV based on patient size, or use of iterative reconstructive technique. FINDINGS: Parenchyma: No intraparenchymal hemorrhage. No evidence of mass, midline shift, or CT findings of infarction. Marte-white differentiation is distinct. Extraaxial Spaces: Normal for age. No subdural or epidural collections identified. Ventricles: Normal in size and position. Sinuses and Orbits: Mucosal thickening in all sinuses with opacification of left ethmoid air cells Imaged orbits, and mastoids show no significant abnormality. Bones: No evidence of fracture or calvarial defect. Other: None. IMPRESSION: Normal head CT. Pansinus disease with opacification of the left ethmoid air cells [facility]
[2018-12-20] MEDS ORDERED: METOCLOPRAMIDE 10 MG/2 ML VIAL IVP STA (12:02)
--- NOTE | 2018-12-20 12:08 | XRAY Report ---
Reason: cough Procedure Date: 12/20/2018 Accession Number: [id number] / [id number] Procedure: XR - Chest 2 View X-Ray CPT Code: 87817 FULL RESULT: EXAM: CHEST RADIOGRAPHY EXAM DATE: 12/20/2018 11:57 AM. CLINICAL HISTORY: Cough. COMPARISON: CHEST 1 VIEW 11/11/2018 12:58 PM. TECHNIQUE: 2 views. FINDINGS: Lungs/Pleura: No focal opacities evident. No pleural effusion. No pneumothorax. Normal volumes. Mediastinum: Heart and mediastinal contours are unremarkable. Other: Left side Port-A-Cath tip in the lower SVC IMPRESSION: No active cardiopulmonary disease [facility]
[2018-12-20 12:47] LABS: GLUCOSE, URINE (UA) NEGATIVE (NEGATIVE); KETONES,URINE (UA) 15 mg/dL (NEGATIVE); LEUKOCYTE ESTERASE, URINE TRACE (NEGATIVE); NITRITE,URINE POSITIVE (NEGATIVE); OCCULT BLOOD,URINE NEGATIVE (NEGATIVE); PH,URINE 5.5 PH (5.0-7.5); PROTEIN,URINE 100 mg/dL (NEGATIVE); UROBILINOGEN,URINE 1 (NORMAL) E.U./dL (NORMAL)
[2018-12-20 12:57] LABS: BACTERIA,URINE Many /HPF (None Seen); BILIRUBIN,URINE NEGATIVE (NEGATIVE); CLARITY,URINE HAZY (CLEAR); ICTOTEST,URINE NEGATIVE; MUCUS,URINE Marked Strands; RBC,URINE 0-5 /HPF (0-5); SQUAMOUS EPITHELIAL CELL,UR FEW Squamous (<= Few)
[2018-12-20] MEDS ORDERED: cefTRIAXone 1 GM in SODIUM CHLORIDE 0.9% MINIBAG 100 ML IV STA (13:30)
[2018-12-20 14:58] VITALS: BP 114/74
== END 2018-12-20 15:05 | disposition home or self-care (01) ==
LOC: ED 09:56
DX: R11.2 Nausea with vomiting, unspecified (principal); E87.6 Hypokalemia; E87.1 Hypo-osmolality and hyponatremia; N39.0 Urinary tract infection, site not specified; F41.9 Anxiety disorder, unspecified; E07.9 Disorder of thyroid, unspecified; I10 Essential (primary) hypertension; C43.9 Malignant melanoma of skin, unspecified
CPT/HCPCS: 36415; 70450; 71046; 80053; 81001; 83605; 83690; 84484; 85025; 87040; 87086; 87275; 87276; 93005; 96361; 96365; 96375; 99283; J2765; 81003

== ENCOUNTER 2019-02-18 13:24 | Outpatient (CLI) | payer OTHER ==
[2019-02-18 13:43] LABS: EOSINOPHILS % (AUTO) 3.7 %; LYMPHOCYTES % (AUTO) 22.5 %; MEAN CORPUSCULAR HGB CONC 32.7 g/dL (32.0-36.0); MEAN CORPUSCULAR VOLUME 85.7 fL (81.0-99.0); MEAN PLATELET VOLUME 7.1 fL (7.9-10.8); MONOCYTES % (AUTO) 5.5 %; NEUTROPHILS % (AUTO) 67.3 %; PLT - PLATELET COUNT 337 10^3/uL (130-450); RED BLOOD COUNT 4.27 10^6/uL (4.20-5.40); RED CELL DISTRIBUTION WIDTH 15.3 % (12.0-15.0); WHITE BLOOD COUNT 14.2 x10^3/uL (4.8-10.8)
[2019-02-18 14:04] LABS: ABNORMAL LYMPHS % (MANUAL) 0 %; BAND NEUTROPHILS % (MANUAL) 0 %
[2019-02-18 14:05] LABS: BASOPHILS # (MANUAL) 0.1 10^3/uL (0-0.1); BASOPHILS % (MANUAL) 1 %; EOSINOPHILS # (MANUAL) 0.3 10^3/uL (0-0.7); LYMPHOCYTES # (MANUAL) 1.8 10^3/uL (1.5-3.5); LYMPHOCYTES % (MANUAL) 13 %; METAMYELOCYTES % (MANUAL) 1 %; MONOCYTES # (MANUAL) 1.4 10^3/uL (0.0-1.0); NEUTROPHILS # (MANUAL) 10.4 10^3/uL (1.5-6.6); NEUTROPHILS % (MANUAL) 73 %; RBC MORPHOLOGY (MULTIPLE) NORMAL APPEARANCE (NORMAL)
[2019-02-18 14:06] LABS: ALBUMIN 3.9 g/dL (3.2-5.5); ALBUMIN/GLOBULIN RATIO 1.6 (1.0-2.2); BILIRUBIN,TOTAL 0.3 mg/dL (0.2-1.0); CALCIUM 8.9 mg/dL (8.5-10.3); CREATININE 0.9 mg/dL (0.4-1.0); DIFFERENTIAL COMMENT MANUAL DIFFERENTIAL; PLATELET ESTIMATE, MANUAL NORMAL (130-450,000) (NORMAL); PLATELET MORPHOLOGY NORMAL APPEARANCE (NORMAL); TOTAL PROTEIN 6.3 g/dL (6.7-8.2)
== END 2019-02-18 13:25 | disposition home or self-care (01) ==
LOC: LAB 13:24
PROVIDERS: ATTEND Physician Assistant Medical
DX: C43.9 Malignant melanoma of skin, unspecified (principal)
CPT/HCPCS: 36415; 80053; 85025

== ENCOUNTER 2019-02-19 09:00 | Outpatient (CLI) | payer OTHER | END 2019-02-19 09:01 | disposition home or self-care (01) | LOC: LAB.R 09:00 | PROVIDERS: ATTEND Physician Assistant Medical | DX: C43.9 Malignant melanoma of skin, unspecified (principal) | CPT/HCPCS: 87045; 87046; 87493 ==